=== PATIENT | female | born 1950 | race Caucasian/White ===

== ENCOUNTER → 2020-03-12 14:32 | Outpatient (BNVA) | payer MEDICARE, OTHER, SELFPAY | PROVIDERS: PCP Internal Medicine; Visit Provider Internal Medicine | DX: I48.20 Chronic atrial fibrillation, unspecified (principal); Z51.81 Encounter for therapeutic drug level monitoring; Z79.01 Long term (current) use of anticoagulants | CPT/HCPCS: 85610; 99211 ==

== ENCOUNTER → 2020-05-08 14:47 | Outpatient (BNVA) | payer MEDICARE, OTHER, SELFPAY | PROVIDERS: PCP Internal Medicine; Visit Provider Internal Medicine | DX: I48.20 Chronic atrial fibrillation, unspecified (principal); Z79.01 Long term (current) use of anticoagulants; Z51.81 Encounter for therapeutic drug level monitoring | CPT/HCPCS: 85610; 99211 ==

== ENCOUNTER → 2020-07-03 14:17 | Outpatient (BNVA) | payer MEDICARE, OTHER, SELFPAY | PROVIDERS: PCP Internal Medicine; Visit Provider Internal Medicine | DX: I48.20 Chronic atrial fibrillation, unspecified (principal); Z51.81 Encounter for therapeutic drug level monitoring; Z79.01 Long term (current) use of anticoagulants | CPT/HCPCS: 85610; 99211 ==

== ENCOUNTER → 2020-08-15 14:26 | Outpatient (BNVA) | payer MEDICARE, OTHER, SELFPAY | PROVIDERS: PCP Internal Medicine; Visit Provider Internal Medicine | DX: I48.20 Chronic atrial fibrillation, unspecified (principal); Z79.01 Long term (current) use of anticoagulants; Z51.81 Encounter for therapeutic drug level monitoring | CPT/HCPCS: G0248 ==

== ENCOUNTER → 2020-08-21 11:46 | Outpatient (BNVA) | payer MEDICARE, OTHER, SELFPAY | PROVIDERS: PCP Internal Medicine; Visit Provider Internal Medicine ==

== ENCOUNTER → 2020-08-28 11:55 | Outpatient (BNVA) | payer MEDICARE, OTHER, SELFPAY | PROVIDERS: PCP Internal Medicine; Visit Provider Internal Medicine ==

== ENCOUNTER → 2020-09-04 10:45 | Outpatient (BNVA) | payer MEDICARE, OTHER, SELFPAY | PROVIDERS: PCP Internal Medicine; Visit Provider Internal Medicine ==

== ENCOUNTER → 2020-09-18 09:55 | Outpatient (BNVA) | payer MEDICARE, OTHER, SELFPAY | PROVIDERS: PCP Internal Medicine; Visit Provider Internal Medicine ==

== ENCOUNTER → 2020-10-02 10:56 | Outpatient (BNVA) | payer MEDICARE, OTHER, SELFPAY | PROVIDERS: PCP Internal Medicine; Visit Provider Internal Medicine ==

== ENCOUNTER → 2020-10-16 10:48 | Outpatient (BNVA) | payer MEDICARE, OTHER, SELFPAY | PROVIDERS: PCP Internal Medicine; Visit Provider Internal Medicine ==

== ENCOUNTER → 2020-10-30 15:22 | Outpatient (BNVA) | payer MEDICARE, OTHER, SELFPAY | PROVIDERS: PCP Internal Medicine; Visit Provider Internal Medicine | DX: I48.20 Chronic atrial fibrillation, unspecified (principal) | CPT/HCPCS: Q3014 ==

== ENCOUNTER → 2020-11-13 11:52 | Outpatient (BNVA) | payer MEDICARE, OTHER, SELFPAY | PROVIDERS: PCP Internal Medicine; Visit Provider Internal Medicine ==

== ENCOUNTER → 2020-11-20 10:14 | Outpatient (BNVA) | payer MEDICARE, OTHER, SELFPAY | PROVIDERS: PCP Internal Medicine; Visit Provider Internal Medicine ==

== ENCOUNTER → 2020-12-04 11:04 | Outpatient (BNVA) | payer MEDICARE, OTHER, SELFPAY | PROVIDERS: PCP Internal Medicine; Visit Provider Internal Medicine ==

== ENCOUNTER → 2020-12-18 11:45 | Outpatient (BNVA) | payer MEDICARE, OTHER, SELFPAY | PROVIDERS: PCP Internal Medicine; Visit Provider Internal Medicine | DX: I48.11 Longstanding persistent atrial fibrillation (principal) | CPT/HCPCS: Q3014 ==

== ENCOUNTER → 2020-12-19 14:02 | Outpatient (BNVA) | payer MEDICARE, OTHER, SELFPAY | PROVIDERS: PCP Internal Medicine; Visit Provider Internal Medicine ==

== ENCOUNTER → 2021-01-02 13:34 | Outpatient (BNVA) | payer MEDICARE, OTHER, SELFPAY | PROVIDERS: PCP Internal Medicine; Visit Provider Internal Medicine ==

== ENCOUNTER → 2021-01-08 12:18 | Outpatient (BNVA) | payer MEDICARE, OTHER, SELFPAY | PROVIDERS: PCP Internal Medicine; Visit Provider Internal Medicine ==

== ENCOUNTER → 2021-01-22 11:47 | Outpatient (BNVA) | payer MEDICARE, OTHER, SELFPAY | PROVIDERS: PCP Internal Medicine; Visit Provider Internal Medicine ==

== ENCOUNTER → 2021-02-05 12:01 | Outpatient (BNVA) | payer MEDICARE, OTHER, SELFPAY | PROVIDERS: PCP Internal Medicine; Visit Provider Internal Medicine ==

== ENCOUNTER → 2021-02-19 11:05 | Outpatient (BNVA) | payer MEDICARE, OTHER, SELFPAY | PROVIDERS: PCP Internal Medicine; Visit Provider Internal Medicine ==

== ENCOUNTER → 2021-03-05 10:27 | Outpatient (BNVA) | payer MEDICARE, OTHER, SELFPAY | PROVIDERS: PCP Internal Medicine; Visit Provider Internal Medicine ==

== ENCOUNTER → 2021-03-19 11:23 | Outpatient (BNVA) | payer MEDICARE, OTHER, SELFPAY | PROVIDERS: PCP Internal Medicine; Visit Provider Internal Medicine ==

== ENCOUNTER → 2021-04-02 10:44 | Outpatient (BNVA) | payer MEDICARE, OTHER, SELFPAY | PROVIDERS: PCP Internal Medicine; Visit Provider Internal Medicine | DX: I48.20 Chronic atrial fibrillation, unspecified (principal); Z51.81 Encounter for therapeutic drug level monitoring; Z79.01 Long term (current) use of anticoagulants | CPT/HCPCS: Q3014 ==

== ENCOUNTER → 2021-04-16 11:48 | Outpatient (BNVA) | payer MEDICARE, OTHER, SELFPAY | PROVIDERS: PCP Internal Medicine; Visit Provider Internal Medicine ==

== ENCOUNTER → 2021-04-30 10:11 | Outpatient (BNVA) | payer MEDICARE, OTHER, SELFPAY | PROVIDERS: PCP Internal Medicine; Visit Provider Internal Medicine ==

== ENCOUNTER → 2021-05-14 11:45 | Outpatient (BNVA) | payer MEDICARE, OTHER, SELFPAY | PROVIDERS: PCP Internal Medicine; Visit Provider Internal Medicine | DX: I48.20 Chronic atrial fibrillation, unspecified (principal); Z51.81 Encounter for therapeutic drug level monitoring; Z79.01 Long term (current) use of anticoagulants | CPT/HCPCS: Q3014 ==

== ENCOUNTER → 2021-05-28 10:37 | Outpatient (BNVA) | payer MEDICARE, OTHER, SELFPAY | PROVIDERS: PCP Internal Medicine; Visit Provider Internal Medicine | DX: I48.20 Chronic atrial fibrillation, unspecified (principal); Z51.81 Encounter for therapeutic drug level monitoring; Z79.01 Long term (current) use of anticoagulants | CPT/HCPCS: Q3014 ==

== ENCOUNTER → 2021-06-04 16:11 | Outpatient (BNVA) | payer MEDICARE, OTHER, SELFPAY | PROVIDERS: PCP Internal Medicine; Visit Provider Internal Medicine | DX: I48.20 Chronic atrial fibrillation, unspecified (principal); Z51.81 Encounter for therapeutic drug level monitoring; Z79.01 Long term (current) use of anticoagulants | CPT/HCPCS: 99211 ==

== ENCOUNTER → 2021-06-12 15:39 | Outpatient (BNVA) | payer MEDICARE, OTHER, SELFPAY | PROVIDERS: PCP Internal Medicine; Visit Provider Internal Medicine | DX: I48.20 Chronic atrial fibrillation, unspecified (principal); Z51.81 Encounter for therapeutic drug level monitoring; Z79.01 Long term (current) use of anticoagulants | CPT/HCPCS: Q3014 ==

== ENCOUNTER → 2021-06-25 11:37 | Outpatient (BNVA) | payer MEDICARE, OTHER, SELFPAY | PROVIDERS: PCP Internal Medicine; Visit Provider Internal Medicine | DX: Z13.89 Encounter for screening for other disorder (principal) ==

== ENCOUNTER → 2021-07-09 11:23 | Outpatient (BNVA) | payer MEDICARE, OTHER, SELFPAY | PROVIDERS: PCP Internal Medicine; Visit Provider Internal Medicine | DX: Z13.89 Encounter for screening for other disorder (principal) ==

== ENCOUNTER → 2021-07-16 11:50 | Outpatient (BNVA) | payer MEDICARE, OTHER, SELFPAY | PROVIDERS: PCP Internal Medicine; Visit Provider Internal Medicine | DX: I48.20 Chronic atrial fibrillation, unspecified (principal); Z51.81 Encounter for therapeutic drug level monitoring; Z79.01 Long term (current) use of anticoagulants | CPT/HCPCS: Q3014 ==

== ENCOUNTER → 2021-07-23 14:57 | Outpatient (BNVA) | payer MEDICARE, OTHER, SELFPAY | PROVIDERS: PCP Internal Medicine; Visit Provider Internal Medicine | DX: I48.20 Chronic atrial fibrillation, unspecified (principal); Z51.81 Encounter for therapeutic drug level monitoring; Z79.01 Long term (current) use of anticoagulants | CPT/HCPCS: Q3014 ==

== ENCOUNTER → 2021-07-30 15:14 | Outpatient (BNVA) | payer MEDICARE, OTHER, SELFPAY | PROVIDERS: PCP Internal Medicine; Visit Provider Internal Medicine | DX: I48.20 Chronic atrial fibrillation, unspecified (principal); Z51.81 Encounter for therapeutic drug level monitoring; Z79.01 Long term (current) use of anticoagulants | CPT/HCPCS: Q3014 ==

== ENCOUNTER → 2021-08-06 13:53 | Outpatient (BNVA) | payer MEDICARE, OTHER, SELFPAY | PROVIDERS: PCP Internal Medicine; Visit Provider Internal Medicine | DX: Z13.89 Encounter for screening for other disorder (principal) ==

== ENCOUNTER → 2021-08-13 14:37 | Outpatient (BNVA) | payer MEDICARE, OTHER, SELFPAY | PROVIDERS: PCP Internal Medicine; Visit Provider Internal Medicine | DX: Z13.89 Encounter for screening for other disorder (principal) ==

== ENCOUNTER → 2021-08-27 13:31 | Outpatient (BNVA) | payer MEDICARE, OTHER, SELFPAY | PROVIDERS: PCP Internal Medicine; Visit Provider Internal Medicine | DX: Z13.89 Encounter for screening for other disorder (principal) ==

== ENCOUNTER → 2021-09-10 14:33 | Outpatient (BNVA) | payer MEDICARE, OTHER, SELFPAY | PROVIDERS: PCP Internal Medicine; Visit Provider Internal Medicine | DX: I48.20 Chronic atrial fibrillation, unspecified (principal); Z79.01 Long term (current) use of anticoagulants; Z51.81 Encounter for therapeutic drug level monitoring | CPT/HCPCS: 85610; 99211 ==

== ENCOUNTER → 2021-09-24 13:07 | Outpatient (BNVA) | payer MEDICARE, OTHER, SELFPAY | PROVIDERS: PCP Internal Medicine; Visit Provider Internal Medicine | DX: Z79.01 Long term (current) use of anticoagulants (principal) ==

== ENCOUNTER 2021-09-25 10:38 | Outpatient (REF) | payer MEDICARE, OTHER, SELFPAY ==
[2021-09-25 14:03] LABS: INTERNATIONAL NORM RATIO 2.3 (0.9-1.1); Prothrombin Time 26.2 SEC (9.9-13.0)
== END 2021-09-25 10:39 | disposition home or self-care (01) ==
LOC: HO.HMGCLDS 10:38
PROVIDERS: PCP Internal Medicine; Visit Provider Nurse Practitioner Family
DX: Z01.818 Encounter for other preprocedural examination (principal); I48.91 Unspecified atrial fibrillation
CPT/HCPCS: 36415; 85610

== ENCOUNTER → 2021-09-26 13:18 | Outpatient (REF) | payer MEDICARE, OTHER, SELFPAY ==
--- NOTE | 2021-09-26 13:25 | ECG_ITS ---
Test Reason : preop Blood Pressure : / mmHG Vent. Rate : 079 BPM Atrial Rate : 079 BPM P-R Int : 162 ms QRS Dur : 080 ms QT Int : 410 ms P-R-T Axes : 072 042 070 degrees QTc Int : 470 ms Normal sinus rhythm with sinus arrhythmia Septal infarct , age undetermined Abnormal ECG No previous ECGs available Referred By: Pari Mas Electronically Signed By:ETHAN BRYANT MD
== END ==
LOC: HO.CARD 13:18
PROVIDERS: PCP Internal Medicine; Visit Provider Nurse Practitioner Family
DX: Z01.818 Encounter for other preprocedural examination (principal); I48.91 Unspecified atrial fibrillation
CPT/HCPCS: 93005

== ENCOUNTER → 2021-10-23 08:57 | Outpatient (BNVA) | payer MEDICARE, OTHER, SELFPAY | PROVIDERS: PCP Internal Medicine; Visit Provider Internal Medicine | DX: I48.20 Chronic atrial fibrillation, unspecified (principal); Z79.01 Long term (current) use of anticoagulants; Z51.81 Encounter for therapeutic drug level monitoring | CPT/HCPCS: Q3014 ==

== ENCOUNTER → 2022-04-22 11:48 | Outpatient (BNVA) | payer MEDICARE, OTHER, SELFPAY | PROVIDERS: PCP Internal Medicine; Visit Provider Internal Medicine | DX: Z79.01 Long term (current) use of anticoagulants (principal) ==

== ENCOUNTER → 2022-05-06 13:39 | Outpatient (BNVA) | payer MEDICARE, OTHER, SELFPAY | PROVIDERS: PCP Internal Medicine; Visit Provider Internal Medicine | DX: Z79.01 Long term (current) use of anticoagulants (principal) ==

== ENCOUNTER → 2022-05-20 13:40 | Outpatient (BNVA) | payer MEDICARE, OTHER, SELFPAY | PROVIDERS: PCP Internal Medicine; Visit Provider Internal Medicine | DX: Z79.01 Long term (current) use of anticoagulants (principal) ==

== ENCOUNTER → 2022-05-27 12:28 | Outpatient (BNVA) | payer MEDICARE, OTHER, SELFPAY | PROVIDERS: PCP Internal Medicine; Visit Provider Internal Medicine | DX: Z79.01 Long term (current) use of anticoagulants (principal) ==

== ENCOUNTER → 2022-06-10 11:13 | Outpatient (BNVA) | payer MEDICARE, OTHER, SELFPAY | PROVIDERS: PCP Internal Medicine; Visit Provider Internal Medicine | DX: Z79.01 Long term (current) use of anticoagulants (principal) ==

== ENCOUNTER → 2022-06-24 11:59 | Outpatient (BNVA) | payer MEDICARE, OTHER, SELFPAY | PROVIDERS: PCP Internal Medicine; Visit Provider Internal Medicine | DX: Z79.01 Long term (current) use of anticoagulants (principal) ==

== ENCOUNTER → 2022-07-08 10:00 | Outpatient (BNVA) | payer MEDICARE, OTHER, SELFPAY | PROVIDERS: PCP Internal Medicine; Visit Provider Internal Medicine | DX: Z79.01 Long term (current) use of anticoagulants (principal) ==

== ENCOUNTER → 2022-07-22 11:06 | Outpatient (BNVA) | payer MEDICARE, OTHER, SELFPAY | PROVIDERS: PCP Internal Medicine; Visit Provider Internal Medicine | DX: Z79.01 Long term (current) use of anticoagulants (principal) ==

== ENCOUNTER → 2022-07-29 10:15 | Outpatient (BNVA) | payer MEDICARE, OTHER, SELFPAY | PROVIDERS: PCP Internal Medicine; Visit Provider Internal Medicine ==

== ENCOUNTER → 2022-08-12 12:00 | Outpatient (BNVA) | payer MEDICARE, OTHER, SELFPAY | PROVIDERS: PCP Internal Medicine; Visit Provider Internal Medicine ==

== ENCOUNTER → 2022-08-26 11:01 | Outpatient (BNVA) | payer MEDICARE, OTHER, SELFPAY | PROVIDERS: PCP Internal Medicine; Visit Provider Internal Medicine ==

== ENCOUNTER → 2022-09-09 12:05 | Outpatient (BNVA) | payer MEDICARE, OTHER, SELFPAY | PROVIDERS: PCP Internal Medicine; Visit Provider Internal Medicine ==

== ENCOUNTER → 2022-09-23 14:05 | Outpatient (BNVA) | payer MEDICARE, OTHER, SELFPAY | PROVIDERS: PCP Internal Medicine; Visit Provider Internal Medicine ==

== ENCOUNTER → 2022-10-07 13:55 | Outpatient (BNVA) | payer MEDICARE, OTHER, SELFPAY | PROVIDERS: PCP Internal Medicine; Visit Provider Internal Medicine | DX: I48.20 Chronic atrial fibrillation, unspecified (principal); Z79.01 Long term (current) use of anticoagulants; Z51.81 Encounter for therapeutic drug level monitoring | CPT/HCPCS: 85610; 99212 ==

== ENCOUNTER → 2022-10-21 10:34 | Outpatient (BNVA) | payer MEDICARE, OTHER, SELFPAY | PROVIDERS: PCP Internal Medicine; Visit Provider Internal Medicine ==

== ENCOUNTER → 2022-11-04 11:16 | Outpatient (BNVA) | payer MEDICARE, OTHER, SELFPAY | PROVIDERS: PCP Internal Medicine; Visit Provider Internal Medicine ==

== ENCOUNTER → 2022-11-18 09:10 | Outpatient (BNVA) | payer MEDICARE, OTHER, SELFPAY | PROVIDERS: PCP Internal Medicine; Visit Provider Internal Medicine ==

== ENCOUNTER → 2022-12-02 10:13 | Outpatient (BNVA) | payer MEDICARE, OTHER, SELFPAY | PROVIDERS: PCP Internal Medicine; Visit Provider Internal Medicine ==

== ENCOUNTER 2022-12-05 14:05 | Outpatient (AMB) | payer MEDICARE, OTHER, SELFPAY ==
--- NOTE | 2022-12-05 14:05 | MHC.PC.OV ---
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 Allergies metoprolol Allergy (Unknown, Verified 12/05/22 14:08) RESP STRESS Sulfa (Sulfonamide Antibiotics) [SULFA (SULFONAMIDE ANTIBIOTICS)] Allergy (Unknown, Verified 12/05/22 14:08) RASH Medication List - Last Reconciled 12/05/22 by Jan Maria MD xyyajitljre-O3-Nwqyfzibv serr 1,500-400-100 mg-unit-mg (Glucosamine Daily Complex) 1 tab PO DAILY [IRON 1 TAB DAILY ] [LORATIDINE 1 TAB DAILY PRN ALLERGIES ] hygvxkyu-vjm-BS-lycopen-lutein 0.4 mg-300 mcg- 250 mcg (Centrum Silver) 1 tab PO DAILY [TUMS PO PRN] [VITAMIN D 3 1 TAB DAILY PO ] warfarin See Protocol ; 5 mg 2 days a week and 7.5 mg for the rest of the week or as directed 90 days Tobacco use date assessed: 12/05/22 Fall risk assessment: No Falls in past year Last assessed Fall Risk: 12/05/22 Dental Screening Dental Screen Date: 12/05/22 Did you have a dental visit in the last 12 months?: No Did you have a dental problem in the last 6 months where you did not have access to dental care?: No HPI medication follow up [phone] HPI Details 72-year-old obese female with a history of aortic valve replacement in 2013 bioprosthetic, atrial fibrillation patient is on anticoagulant, GERD. Patient also has an ascending aorta dilatation at 4.2 cm November 2018. Patient is here for follow-up through Telehealth. DR. Mayen. have not seen cardiology. BP good at home PFSH Medical History (Updated 12/05/22 @ 14:18 by Jan Maria MD) Atrial fibrillation Cholelithiasis GERD (gastroesophageal reflux disease) Incisional hernia Obesity (BMI 30-39.9) Osteoporosis Renal calculi Urge incontinence Surgical History (Updated 12/05/22 @ 14:24 by Jan Maria MD) Aortic valve replaced History of cataract surgery Hx of appendectomy Hx of tonsillectomy S/P MARLENY-BSO Social History (Updated 09/20/21 @ 08:40 by Eber Romero Abiodun) Housing: House Alcohol intake: never Patient Tobacco Use Status: Former Tobacco user e-Cigarette/Vaping Use: Never Used Second Hand Smoke Exposure: No service: No Current occupational status: retired Cognitive needs: No Hearing needs: No Vision needs: Yes (glasses) Questionnaire PHQ-9 Over the last 2 weeks, how often have you been bothered by any of the following problems? 1. Little interest or pleasure in doing things: not at all 2. Feeling down, depressed, or hopeless: not at all 3. Trouble falling or staying asleep, or sleeping too much: not at all 4. Feeling tired or having little energy: not at all 5. Poor appetite or overeating: not at all 6. Feeling bad about yourself - or that you are a failure or have let yourself or your family down: not at all 7. Trouble concentrating on things, such as reading the newspaper or watching television: not at all 8. Moving or speaking so slowly that other people could have noticed. Or the opposite - being so fidgety or restless that you have been moving around a lot more than usual: not at all 9. Thoughts that you would be better off or of hurting yourself in some way: not at all Total score: 0 Depression Screening Interpretation: Negative Source: Developed by Drs. Iftikhar Wheeler, Akosua Contreras, Scooter Leon and colleagues, with an educational brooke from [employer]. Thrive Questionnaire Date Thrive assessed: 12/05/22 AUDIT C Alcohol Use Questionnaire (AUDIT-C) 1. How often do you have a drink containing alcohol?: Never Total Score: 0 GANESH-7 AMB Questionnaire GANESH-7 Date GANESH - 7 assessed: 12/05/22 Feeling nervous, anxious, or on edge: 0 = Not at all Not being able to stop or control worryin = Not at all Worrying too much about different things: 0 = Not at all Trouble relaxin = Not at all Being so restless that it is hard to sit still: 0 = Not at all Becoming easily annoyed or irritable: 0 = Not at all Feeling afraid as if something awful might happen: 0 = Not at all Total GANESH-7 score (0-4 normal; 5-9 mild; 10-14 moderate; 15-21 severe): 0 Source: Developed by Drs. Iftikhar Wheeler, Akosua Contreras, Scooter Leon and colleagues, with an educational brooke from [employer]. Physical exam (Primary Care) Tobacco/Smoking Status: Tobacco use Status Tobacco use date assessed 12/05/22 12/05/22 14:09 Patient Tobacco Use Status Former Tobacco user 12/05/22 14:09 e-Cigarette/Vaping Use Never Used 12/05/22 14:09 PHQ-9: PHQ-9 Score PHQ-9: Total score 0 12/05/22 14:09 Depression Screening Interpretation: Negative Thrive Assessment: Date of Thrive Assessment Date Thrive assessed 12/05/22 12/05/22 14:09 Telehealth Telehealth Location of provider rendering services: practice address Location of patient: address on file Patient Identification confirmed using: Name, : Yes Telehealth method: voice only (landline) Patient verbally consented to treatment: Yes Patient verbally consented to billing insurance company: Yes Patient informed of any privacy concerns related to visit: Yes Minutes spent on Phone/Video with Pt.: 25 Assessment and Plan Assessment & Plan (1) Ascending aorta dilatation: Comment: 2019 4.2 cm Code(s): I77.810 - Thoracic aortic ectasia Plan: Control the blood pressure continue to monitor (2) Atrial fibrillation: Code(s): I48.91 - Unspecified atrial fibrillation Plan: Continue with anticoagulation, will need examination next time. Blood work requested (3) Obesity (BMI 30-39.9): Code(s): E66.9 - Obesity, unspecified Plan: Diet and exercise (4) GERD (gastroesophageal reflux disease): Code(s): K21.9 - Gastro-esophageal reflux disease without esophagitis Plan: Avoid the foods that causes that usually spicy foods, tomato products, juices, coffee, soda and foods that your sensitive to. After eating do not lie down, allow 3-4 hours before in lie down. And keep the head of bed above 30 degrees to avoid the acid from going up. (5) Aortic valve replaced: Comment: Aortic stenosis December 22/2014 Dr. zamorano November 2018 echocardiogram normal LV impaired relaxation bioprosthetic valve normal, ascending aorta 4.2 cm Code(s): Z95.2 - Presence of prosthetic heart valve Plan: Continue to be monitored by Cardiology Orders: Orders Vitamin B12 and Folate Today Z95.2 - Presence of prosthetic heart valve B Type Natriuretic Peptide Today Z95.2 - Presence of prosthetic heart valve Comprehensive Met. Panel Today Z95.2 - Presence of prosthetic heart valve Lipid Panel Today E78.00 - Pure hypercholesterolemia, unspecified, Z95.2 - Presence of prosthetic heart valve Free T4 (Free Thyroxine) Today Z95.2 - Presence of prosthetic heart valve Thyroid Stimulating Hormone Today Z95.2 - Presence of prosthetic heart valve Vitamin D 25-OH Total Today Z95.2 - Presence of prosthetic heart valve Complete Blood Count Auto Diff Today Z95.2 - Presence of prosthetic heart valve CA echo transthoracic complete Today I77.810 - Thoracic aortic ectasia Medications: Changed From warfarin 10 mg See Protocol PO DAILY 180 tabs 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
== END 2022-12-05 14:30 | disposition home or self-care (01) ==
LOC: HO.HMGH 14:05
PROVIDERS: PCP Internal Medicine; Visit Provider Internal Medicine
DX: I48.91 Unspecified atrial fibrillation (principal); I77.810 Thoracic aortic ectasia; E66.9 Obesity, unspecified; K21.9 Gastro-esophageal reflux disease without esophagitis; Z95.2 Presence of prosthetic heart valve
CPT/HCPCS: 99443

== ENCOUNTER → 2022-12-16 13:28 | Outpatient (BNVA) | payer MEDICARE, OTHER, SELFPAY | PROVIDERS: PCP Internal Medicine; Visit Provider Internal Medicine ==

== ENCOUNTER → 2022-12-30 09:03 | Outpatient (BNVA) | payer MEDICARE, OTHER, SELFPAY | PROVIDERS: PCP Internal Medicine; Visit Provider Internal Medicine ==

== ENCOUNTER → 2023-01-06 08:40 | Outpatient (BNVA) | payer MEDICARE, OTHER, SELFPAY | PROVIDERS: PCP Internal Medicine; Visit Provider Internal Medicine ==

== ENCOUNTER → 2023-01-20 10:28 | Outpatient (BNVA) | payer MEDICARE, OTHER, SELFPAY | PROVIDERS: PCP Internal Medicine; Visit Provider Internal Medicine ==

== ENCOUNTER → 2023-02-03 12:12 | Outpatient (BNVA) | payer MEDICARE, OTHER, SELFPAY | PROVIDERS: PCP Internal Medicine; Visit Provider Internal Medicine ==

== ENCOUNTER → 2023-03-03 10:20 | Outpatient (BNVA) | payer MEDICARE, OTHER, SELFPAY | PROVIDERS: PCP Internal Medicine; Visit Provider Internal Medicine ==

== ENCOUNTER → 2023-03-17 10:11 | Outpatient (BNVA) | payer MEDICARE, OTHER, SELFPAY | PROVIDERS: PCP Internal Medicine; Visit Provider Internal Medicine ==

== ENCOUNTER → 2023-03-24 09:15 | Outpatient (BNVA) | payer MEDICARE, OTHER, SELFPAY | PROVIDERS: PCP Internal Medicine; Visit Provider Internal Medicine ==

== ENCOUNTER → 2023-04-07 10:15 | Outpatient (BNVA) | payer MEDICARE, OTHER, SELFPAY | PROVIDERS: PCP Internal Medicine; Visit Provider Internal Medicine ==

== ENCOUNTER → 2023-04-21 10:25 | Outpatient (BNVA) | payer MEDICARE, OTHER, SELFPAY | PROVIDERS: PCP Internal Medicine; Visit Provider Internal Medicine ==

== ENCOUNTER → 2023-05-05 10:59 | Outpatient (BNVA) | payer MEDICARE, OTHER, SELFPAY | PROVIDERS: PCP Internal Medicine; Visit Provider Internal Medicine ==

== ENCOUNTER → 2023-05-19 15:09 | Outpatient (BNVA) | payer MEDICARE, OTHER, SELFPAY | PROVIDERS: PCP Internal Medicine; Visit Provider Internal Medicine ==

== ENCOUNTER → 2023-05-26 10:36 | Outpatient (BNVA) | payer MEDICARE, OTHER, SELFPAY | PROVIDERS: PCP Internal Medicine; Visit Provider Internal Medicine ==

== ENCOUNTER → 2023-06-09 10:42 | Outpatient (BNVA) | payer MEDICARE, OTHER, SELFPAY | PROVIDERS: PCP Internal Medicine; Visit Provider Internal Medicine ==

== ENCOUNTER 2023-06-23 09:17 | Outpatient (AMB) | payer MEDICARE, OTHER, SELFPAY ==
--- NOTE | 2023-06-23 09:21 | MHC.OFFVISCO ---
Intake Intake Visit Reasons: Anticoagulation Allergies metoprolol Allergy (Unknown, Verified 06/09/23 10:44) RESP STRESS Sulfa (Sulfonamide Antibiotics) [SULFA (SULFONAMIDE ANTIBIOTICS)] Allergy (Unknown, Verified 06/09/23 10:44) RASH Nursing Note INR received from [facility] INR is: 1.9 INR out of range, patient indicated no changes in assessment questionnaire Telephone call to patient for further assessment Didn't have her usual peanut butter the past few days Medication or supplement: no chages Diet: States will have her usual peanut butter today Dose: no changes Signs and symptoms of bleeding and bruising discussed Patient will go to ER with any signs and symptoms of bleeding, or clotting or unusual bruising? Retest: 2 weeks Patient verbalizes understanding of instructions given and retest date with read back Anti-Coag Initial Assessment Social Hx Patient Tobacco Use Status: Former Tobacco user alcohol intake: never Questionnaires HAS-BLED Does the patient had uncontrolled Hypertension?: No Does the patient have renal disease?: No Does the patient have liver disease?: No Does the patient have a history of stroke?: No Has the patient had major bleeding or predisposition to bleeding?: No Does the patient have labile INRs?: No Is the patient over 65 years of age?: Yes Is the patient on medications that gives them a predisposition to bleeding?: Yes Does the patient use alcohol?: No HAS-BLED Score: 2 CHADSVASC Age: 75 or over Gender: Female Does the patient have a history of CHF?: No Does the patient have a history of Hypertension?: No Does the patient have a history of Stroke/TIA/Thromboembolism?: No Does the patient have a history of Vascular Disease (prior AL, PAD or aortic plaque)?: Yes Does the patient have a history of Diabetes?: No CHADS VACS Score: 4 Alex Prediction Score Rsk VTE Active Cancer: No Previous VTE, excluding superficial vein thrombosis: No Reduced mobility: No Already known Thrombophilic Condition: No With-in last month Trauma and/or Surgery: No Elderly 70 year or older: Yes Heart and/or Respiratory Failure: No Acute Myocardial infarction and/or Ischemic Stroke: No Acute Infection and/or Rheumatologic Disorder: No Obesity (BMI 30 or greater): Yes Ongoing Hormonal Treatment: No Score: 2 Alex Score less than 4; Low Risk of VTE Alex Score 4 or greater; High Risk of VTE Coding Level of Care Code Est Patient Level 1 Diagnoses Current use of anticoagulant therapy Z79.01 Results AMB INR Fingerstick AMB INR Fingerstick 1.9 Last Edit by Armida Fernández RN on 06/23/23 09:33 ACELIS Assessment & Plan Assessment & Plan (1) Current use of anticoagulant therapy: Code(s): 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
== END 2023-06-23 09:45 | disposition home or self-care (01) ==
LOC: HO.ACS 09:17
PROVIDERS: PCP Internal Medicine; Visit Provider Internal Medicine
DX: Z79.01 Long term (current) use of anticoagulants (principal)

== ENCOUNTER → 2023-06-23 09:17 | Outpatient (BNVA) | payer MEDICARE, OTHER, SELFPAY | PROVIDERS: PCP Internal Medicine; Visit Provider Internal Medicine | DX: I48.20 Chronic atrial fibrillation, unspecified (principal); Z79.01 Long term (current) use of anticoagulants; Z51.81 Encounter for therapeutic drug level monitoring | CPT/HCPCS: 99211 ==

== ENCOUNTER 2023-07-07 10:52 | Outpatient (AMB) | payer MEDICARE, OTHER, SELFPAY ==
--- NOTE | 2023-07-07 11:54 | MHC.OFFVISCO ---
Intake Intake Visit Reasons: Anticoagulation Allergies metoprolol Allergy (Unknown, Verified 06/09/23 10:44) RESP STRESS Sulfa (Sulfonamide Antibiotics) [SULFA (SULFONAMIDE ANTIBIOTICS)] Allergy (Unknown, Verified 06/09/23 10:44) RASH Nursing Note INR received from [facility] INR is: 3.7 INR out of range; patient indicated no changes in assessment questionnaire Telephone call to patient for further assessment Pt states she has been off her regular diet and had taken tylenol 3 days in a row with one day of 2 doses and one dose the other days Medication or supplement: no changes Diet: pt not careful with her diet Dose: decrease today's dose to 5mg(7.5mg) then resume usual dose of 5mg X2 days (Wed/Thu) and 7.5mg X 5days Signs and symptoms of bleeding and bruising discussed Patient will go to ER with any signs and symptoms of bleeding, or clotting or unusual bruising? 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
== END 2023-07-07 12:09 | disposition home or self-care (01) ==
LOC: HO.ACS 10:52
PROVIDERS: PCP Internal Medicine; Visit Provider Internal Medicine
DX: Z79.01 Long term (current) use of anticoagulants (principal)

== ENCOUNTER → 2023-07-07 10:52 | Outpatient (BNVA) | payer MEDICARE, OTHER, SELFPAY | PROVIDERS: PCP Internal Medicine; Visit Provider Internal Medicine | DX: I48.20 Chronic atrial fibrillation, unspecified (principal); Z79.01 Long term (current) use of anticoagulants; Z51.81 Encounter for therapeutic drug level monitoring | CPT/HCPCS: 99211 ==

== ENCOUNTER → 2023-07-14 10:26 | Outpatient (BNVA) | payer MEDICARE, OTHER, SELFPAY | PROVIDERS: PCP Internal Medicine; Visit Provider Internal Medicine ==

== ENCOUNTER → 2023-07-28 10:29 | Outpatient (BNVA) | payer MEDICARE, OTHER, SELFPAY | PROVIDERS: PCP Internal Medicine; Visit Provider Internal Medicine ==

== ENCOUNTER → 2023-08-11 12:02 | Outpatient (BNVA) | payer MEDICARE, OTHER, SELFPAY | PROVIDERS: PCP Internal Medicine; Visit Provider Internal Medicine ==

== ENCOUNTER → 2023-08-25 13:29 | Outpatient (BNVA) | payer MEDICARE, OTHER, SELFPAY | PROVIDERS: PCP Internal Medicine; Visit Provider Internal Medicine ==

== ENCOUNTER → 2023-09-08 10:52 | Outpatient (BNVA) | payer MEDICARE, OTHER, SELFPAY | PROVIDERS: PCP Internal Medicine; Visit Provider Internal Medicine ==

== ENCOUNTER → 2023-09-22 09:51 | Outpatient (BNVA) | payer MEDICARE, OTHER, SELFPAY | PROVIDERS: PCP Internal Medicine; Visit Provider Internal Medicine ==

== ENCOUNTER → 2023-10-06 09:43 | Outpatient (BNVA) | payer MEDICARE, OTHER, SELFPAY | PROVIDERS: PCP Internal Medicine; Visit Provider Internal Medicine ==

== ENCOUNTER → 2023-10-20 14:30 | Outpatient (BNVA) | payer MEDICARE, OTHER, SELFPAY | PROVIDERS: PCP Internal Medicine; Visit Provider Internal Medicine ==

== ENCOUNTER → 2023-11-03 12:09 | Outpatient (BNVA) | payer MEDICARE, OTHER, SELFPAY | PROVIDERS: PCP Internal Medicine; Visit Provider Internal Medicine ==

== ENCOUNTER → 2023-11-17 08:32 | Outpatient (BNVA) | payer MEDICARE, OTHER, SELFPAY | PROVIDERS: PCP Internal Medicine; Visit Provider Internal Medicine ==

== ENCOUNTER → 2023-11-18 10:25 | Outpatient (BNVA) | payer MEDICARE, OTHER, SELFPAY | PROVIDERS: PCP Internal Medicine; Visit Provider Internal Medicine ==

== ENCOUNTER → 2023-11-24 10:45 | Outpatient (BNVA) | payer MEDICARE, OTHER, SELFPAY | PROVIDERS: PCP Internal Medicine; Visit Provider Internal Medicine ==

== ENCOUNTER 2023-12-08 14:11 | Outpatient (REF) | payer MEDICARE, OTHER, SELFPAY ==
[2023-12-08 15:00] LABS: Prothrombin Time 64.8 SEC (11.1-13.3)
[2023-12-08 15:07] LABS: INTERNATIONAL NORM RATIO 5.3 (0.9-1.1)
== END 2023-12-08 14:12 | disposition home or self-care (01) ==
LOC: HO.LAB 14:11
PROVIDERS: PCP Internal Medicine; Visit Provider Internal Medicine
DX: Z51.81 Encounter for therapeutic drug level monitoring (principal); Z79.01 Long term (current) use of anticoagulants
CPT/HCPCS: 36415; 85610; 99212

== ENCOUNTER 2023-12-08 14:11 | Outpatient (AMB) | payer MEDICARE, OTHER, SELFPAY ==
[2023-12-08 14:31] LABS: Prothrombin Time Whole Bld POC 69.7 sec (11.1-13.5); ~PT, ~INR - Anti Coag Clinic 5.8 (0.9-1.1)
--- NOTE | 2023-12-08 14:45 | MHC.OFFVISCO ---
Intake Intake Visit Reasons: Anticoagulation Allergies metoprolol Allergy (Unknown, Verified 12/08/23 14:19) RESP STRESS Sulfa (Sulfonamide Antibiotics) [SULFA (SULFONAMIDE ANTIBIOTICS)] Allergy (Unknown, Verified 12/08/23 14:19) RASH Medication List - Last Reconciled 12/08/23 by Armida Fernández RN [id number] serr 1,500-400-100 mg-unit-mg (Glucosamine Daily Complex) 1 tab PO DAILY [IRON 1 TAB DAILY ] [LORATIDINE 1 TAB DAILY PRN ALLERGIES ] sdiilycj-hoa-JT-lycopen-lutein 0.4 mg-300 mcg- 250 mcg (Centrum Silver) 1 tab PO DAILY [TUMS PO PRN] [VITAMIN D 3 1 TAB DAILY PO ] warfarin See Protocol ; 5 mg 2 days a week and 7.5 mg for the rest of the week or as directed 90 days Nursing Note Pt to [facility] accompanied by friend for meter to meter check. Pt demonstrated good technique with home meter. Last 5 INR's in pt's POC machine verified with [facility] documentation. Pt INR: 6.7, [facility] INR: 5.7 INR out of range of 2-3 Pt states she has been very stressed thinking about going out of the house to come to this appointment. Stress can increase the INR. Also, during med review, pt states she has not taken her multivitamin in 1 week. This can also increase the INR as the MVI contains Vit K. Pt states she ran out of med but ordered more and received it today. Pt sent to lab for verification of INR. Lab draw result: 5.3 Received from [facility] Diet: Usual diet for pt but states she has not had as much greens recently. Dose: Hold today's dose of 7.5mg then to retest at home tomorrow. Signs and symptoms of bleeding and bruising discussed Patient will go to ER with any signs and symptoms of bleeding, or clotting or unusual bruising? Retest: 12/09/23 Patient verbalizes understanding of instructions given and retest date with read back T/C to Dr Maria's office to report critical value of 5.3. Spoke to Tisha MARTINEZ and results given to her along with dosing plan and next re-test day. Composed note also written to Dr Maria. 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
== END 2023-12-08 16:12 | disposition home or self-care (01) ==
LOC: HO.ACS 14:11
PROVIDERS: PCP Internal Medicine; Visit Provider Internal Medicine
DX: Z79.01 Long term (current) use of anticoagulants (principal)

== ENCOUNTER → 2023-12-09 10:38 | Outpatient (BNVA) | payer MEDICARE, OTHER, SELFPAY | PROVIDERS: PCP Internal Medicine; Visit Provider Internal Medicine ==

== ENCOUNTER → 2023-12-15 12:14 | Outpatient (BNVA) | payer MEDICARE, OTHER, SELFPAY | PROVIDERS: PCP Internal Medicine; Visit Provider Internal Medicine ==

== ENCOUNTER → 2023-12-22 09:10 | Outpatient (BNVA) | payer MEDICARE, OTHER, SELFPAY | PROVIDERS: PCP Internal Medicine; Visit Provider Internal Medicine ==

== ENCOUNTER → 2024-01-05 09:56 | Outpatient (BNVA) | payer MEDICARE, OTHER, SELFPAY | PROVIDERS: PCP Internal Medicine; Visit Provider Internal Medicine ==

== ENCOUNTER → 2024-01-19 11:16 | Outpatient (BNVA) | payer MEDICARE, OTHER, SELFPAY | PROVIDERS: PCP Internal Medicine; Visit Provider Internal Medicine ==

== ENCOUNTER → 2024-02-02 09:32 | Outpatient (BNVA) | payer MEDICARE, OTHER, SELFPAY | PROVIDERS: PCP Internal Medicine; Visit Provider Internal Medicine ==

== ENCOUNTER → 2024-02-16 09:03 | Outpatient (BNVA) | payer MEDICARE, OTHER, SELFPAY | PROVIDERS: PCP Internal Medicine; Visit Provider Internal Medicine ==

== ENCOUNTER 2024-03-21 15:25 | Outpatient (AMB) | payer MEDICARE, OTHER, SELFPAY ==
--- NOTE | 2024-03-21 16:03 | A.OFFPC_ITS ---
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 Automat Required: No Accompanied by: Self / Same As Patient Allergies metoprolol Allergy (Unknown, Verified 03/21/24 16:05) RESP STRESS Sulfa (Sulfonamide Antibiotics) [SULFA (SULFONAMIDE ANTIBIOTICS)] Allergy (Unknown, Verified 03/21/24 16:05) RASH Medication List - Last Reconciled 03/21/24 by Jan Maria MD kaffdldnmgx-E1-Dyigfaqje serr 1,500-400-100 mg-unit-mg (Glucosamine Daily Complex) 1 tab PO DAILY [IRON 1 TAB DAILY ] [LORATIDINE 1 TAB DAILY PRN ALLERGIES ] qpfyymwj-boi-DC-lycopen-lutein 0.4 mg-300 mcg- 250 mcg (Centrum Silver) 1 tab PO DAILY [TUMS PO PRN] [VITAMIN D 3 1 TAB DAILY PO ] warfarin See Protocol ; 5 mg 2 days a week and 7.5 mg for the rest of the week or as directed 90 days Tobacco use date assessed: 03/21/24 Fall risk assessment: No Falls in past year Last assessed Fall Risk: 03/21/24 Dental Screening Dental Screen Date: 03/21/24 Did you have a dental visit in the last 12 months?: No Did you have a dental problem in the last 6 months where you did not have access to dental care?: No Was dental information given to patient?: No HPI FollowUp HPI Details 74-year-old obese female with a history of aortic valve replacement atrial fibrillation ascending aorta dilatation last seen in 12/14/2022. noted weight loss, states has bad habits - sleeps late-. noted o2 sat 90 goes down 89 on walking o2 sat goes down to 86 and going to sit down oxygen back to 90 [facility] Medical History (Updated 03/21/24 @ 16:28 by Jan Maria MD) Incisional hernia Renal calculi Osteoporosis Urge incontinence Atrial fibrillation Obesity (BMI 30-39.9) Cholelithiasis GERD (gastroesophageal reflux disease) Surgical History History of cataract surgery S/P MARLENY-BSO Hx of tonsillectomy Hx of appendectomy Aortic valve replaced Social History Housing: House Alcohol intake: never Patient Tobacco Use Status: Former Tobacco user e-Cigarette/Vaping Use: Never Used Second Hand Smoke Exposure: No service: No Current occupational status: retired Cognitive needs: No Hearing needs: No Vision needs: Yes (glasses) Questionnaire PHQ-9 Over the last 2 weeks, how often have you been bothered by any of the following problems? 1. Little interest or pleasure in doing things: not at all 2. Feeling down, depressed, or hopeless: not at all 3. Trouble falling or staying asleep, or sleeping too much: not at all 4. Feeling tired or having little energy: not at all 5. Poor appetite or overeating: not at all 6. Feeling bad about yourself - or that you are a failure or have let yourself or your family down: not at all 7. Trouble concentrating on things, such as reading the newspaper or watching television: not at all 8. Moving or speaking so slowly that other people could have noticed. Or the opposite - being so fidgety or restless that you have been moving around a lot more than usual: not at all 9. Thoughts that you would be better off or of hurting yourself in some way: not at all Total score: 0 Depression Screening Interpretation: Negative Depression Screening Done: Yes Source: Developed by Drs. Iftikhar Wheeler, Akosua Contreras, Scooter Leon and colleagues, with an educational brooke from [employer]. Thrive Questionnaire Date Thrive assessed: 03/21/24 I am a: Patient What is your living situation today?: I have a steady place to live Within the past 12 months, did the food you bought not last and you didn't have the money to get more?: Never true Within the past 12 months, did you worry whether your food would run out before you got money to buy more?: Never true Do you have trouble paying for medicines?: No Do you have trouble getting transportation to medical appointments?: No Do you have trouble paying your heating and electricity bill?: No Do you have trouble taking care of your child, family member or friend?: No Do you have trouble with day-to-day activities such as bathing, preparing meals, shopping, managing finances, etc.?: No Are you currently unemployed and looking for a job?: No Are you interested in more education?: No Please select the resources that you would like help with: None Currently or been in a relationship where the following occur: No concerns reported THRIVE Score: 0 AUDIT C Alcohol Use Questionnaire (AUDIT-C) 1. How often do you have a drink containing alcohol?: Never 3. How often do you have six or more drinks on one occasion?: Never Total Score: 0 GANESH-7 AMB Questionnaire GANESH-7 Date GANESH - 7 assessed: 03/21/24 Feeling nervous, anxious, or on edge: 0 = Not at all Not being able to stop or control worryin = Not at all Worrying too much about different things: 0 = Not at all Trouble relaxin = Not at all Being so restless that it is hard to sit still: 0 = Not at all Becoming easily annoyed or irritable: 0 = Not at all Feeling afraid as if something awful might happen: 0 = Not at all Total GANESH-7 score (0-4 normal; 5-9 mild; 10-14 moderate; 15-21 severe): 0 Source: Developed by Drs. Iftikhar Wheeler, Akosua Contreras, Scooter Leon and colleagues, with an educational brooke from [employer]. Physical exam (Primary Care) Vital Signs: Last Vital Signs Pulse 82 03/21/24 16:04 BP 118/80 03/21/24 16:04 Pulse Ox 90 L 03/21/24 16:04 Oxygen Delivery Method Room Air 03/21/24 16:04 BMI result Body Mass Index 32.8 Tobacco/Smoking Status: Tobacco use Status Tobacco use date assessed 03/21/24 03/21/24 16:10 Patient Tobacco Use Status Former Tobacco user 03/21/24 16:10 e-Cigarette/Vaping Use Never Used 03/21/24 16:10 PHQ-9: PHQ-9 Score PHQ-9: Total score 0 03/21/24 16:10 Depression Screening Interpretation: Negative Thrive Assessment: Date of Thrive Assessment Date Thrive assessed 11/25/24 11/25/24 16:10 Currently or been in a relationship where the following occur: No concerns reported Const General: alert; No acute distress Eyes Conjunctivae: conjunctivae normal Resp Auscultation: clear to auscultation bilaterally Cardio Rate: regular rate Rhythm: regular rhythm GI Inspection: Yes normal to inspection Back/Spine/Pelvis Other: noted sever scoliosis. Extrem General: Yes normal to inspection and No edema Coding Level of Care Code Est Pt Level 4 (64645) Complex EM visit Add On G2211 Diagnoses Ascending aorta dilatation I77.810 Obesity (BMI 30-39.9) E66.9 Paroxysmal atrial fibrillation I48.0 Atrial fibrillation type: paroxysmal Aortic valve replaced Z95.2 Gastroesophageal reflux disease without esophagitis K21.9 Esophagitis presence: without esophagitis Hypoxia R09.02 Assessment & Plan Assessment & Plan (1) Ascending aorta dilatation: Comment: 2019 4.2 cm Code(s): I77.810 - Thoracic aortic ectasia Category: Medical Plan: Patient needs follow-up workup to determine the size. (2) Obesity (BMI 30-39.9): Code(s): E66.9 - Obesity, unspecified Category: Medical Plan: Diet and exercise (3) Atrial fibrillation: Code(s): I48.91 - Unspecified atrial fibrillation Category: Medical Qualifiers: Atrial fibrillation type: paroxysmal Qualified Code(s): I48.0 - Paroxysmal atrial fibrillation Plan: Patient on anticoagulation with Coumadin (4) Aortic valve replaced: Comment: Aortic stenosis December 22/2014 Dr. zamorano November 2018 echocardiogram normal LV impaired relaxation bioprosthetic valve normal, ascending aorta 4.2 cm Code(s): Z95.2 - Presence of prosthetic heart valve Category: Surgical Plan: Continue to monitor and follow up with Cardiology advised echo (5) GERD (gastroesophageal reflux disease): Code(s): K21.9 - Gastro-esophageal reflux disease without esophagitis Category: Medical Qualifiers: Esophagitis presence: without esophagitis Qualified Code(s): K21.9 - Gastro-esophageal reflux disease without esophagitis Plan: Avoid the foods that causes that usually spicy foods, tomato products, juices, coffee, soda and foods that your sensitive to. After eating do not lie down, allow 3-4 hours before in lie down. And keep the head of bed above 30 degrees to avoid the acid from going up. (6) Hypoxia: Code(s): R09.02 - Hypoxemia Category: Medical Plan: Oxygen tank ordered and will refer to Pulmonary [facility]O Orders: Orders Complete Blood Count Auto Diff Today I48.0 - Paroxysmal atrial fibrillation Free T4 (Free Thyroxine) Today I48.0 - Paroxysmal atrial fibrillation Vitamin B12 and Folate Today I48.0 - Paroxysmal atrial fibrillation Vitamin D 25-OH Total Today I48.0 - Paroxysmal atrial fibrillation CA echo transthoracic complete Today I48.0 - Paroxysmal atrial fibrillation Comprehensive Met. Panel Today I48.0 - Paroxysmal atrial fibrillation Thyroid Stimulating Hormone Today I48.0 - Paroxysmal atrial fibrillation B Type Natriuretic Peptide Today I48.0 - Paroxysmal atrial fibrillation Lipid Panel Today E78.00 - Pure hypercholesterolemia, unspecified, I48.0 - Paroxysmal atrial fibrillation Hemoglobin A1c Today I48.0 - Paroxysmal atrial fibrillation XR chest 2V Today R09.02 - Hypoxemia Referrals Pulmonology Referral R09.02 - Hypoxemia Medications: New Oxygen Home Use As directedOxygen 2L NC 1 ea 0RF R09.02 - Hypoxemia
[2024-03-21 16:04] VITALS: BP 118/80; PULSE 82; O2SAT 90; BMI 32.8
== END 2024-03-21 16:49 | disposition home or self-care (01) ==
PROVIDERS: PCP Internal Medicine; Visit Provider Internal Medicine
DX: I77.810 Thoracic aortic ectasia (principal); E66.9 Obesity, unspecified; I48.0 Paroxysmal atrial fibrillation; Z68.32 Body mass index [BMI] 32.0-32.9, adult; Z95.2 Presence of prosthetic heart valve; K21.9 Gastro-esophageal reflux disease without esophagitis; R09.02 Hypoxemia

== ENCOUNTER → 2024-03-21 15:25 | Outpatient (BNVA) | payer MEDICARE, OTHER, SELFPAY | PROVIDERS: PCP Internal Medicine; Visit Provider Internal Medicine | DX: Z23 Encounter for immunization (principal); I77.810 Thoracic aortic ectasia; E66.9 Obesity, unspecified; I48.0 Paroxysmal atrial fibrillation; K21.9 Gastro-esophageal reflux disease without esophagitis; R09.02 Hypoxemia; Z95.2 Presence of prosthetic heart valve | CPT/HCPCS: 90471; 90656; 96127; 99212 ==

== ENCOUNTER → 2024-04-12 13:51 | Outpatient (BNVA) | payer MEDICARE, OTHER, SELFPAY | PROVIDERS: PCP Internal Medicine; Visit Provider Internal Medicine | DX: Z79.01 Long term (current) use of anticoagulants (principal) ==

== ENCOUNTER → 2024-05-31 08:35 | Outpatient (BNVA) | payer MEDICARE, OTHER, SELFPAY | PROVIDERS: PCP Internal Medicine; Visit Provider Internal Medicine ==

== ENCOUNTER 2024-06-10 13:18 | Outpatient (AMB) | payer MEDICARE, OTHER, SELFPAY ==
[2024-06-10 13:19] VITALS: BP 130/60; PULSE 80; O2SAT 94; BMI 32.6
--- NOTE | 2024-06-10 13:19 | MHC.OFFVIS ---
Vital Signs 06/10/24 13:19 Height 5 ft 0.05 in Weight 167 lb BMI 32.6 BP 130/60 Blood Pressure Location Rt brachial Position Sitting Pulse 80 Pulse Source Doppler Pulse Oximetry (%) 94 Oxygen Delivery Method Room Air Intake Visit Reasons: Hypoxemia Allergies metoprolol Allergy (Unknown, Verified 06/10/24 13:23) RESP STRESS Sulfa (Sulfonamide Antibiotics) [SULFA (SULFONAMIDE ANTIBIOTICS)] Allergy (Unknown, Verified 06/10/24 13:23) RASH HPI HPI Hypoxemia: Details: 74-year-old lady, former 10 pack-year smoker, quit 40 years prior with underlying history of AFib and prior aortic valve replacement referred for evaluation of hypoxemia. Patient has very sedentary lifestyle, thus she denies any dyspnea on exertion. [facility] Medical History (Updated 06/10/24 @ 14:06 by Elie Goddard MD) Incisional hernia Renal calculi Osteoporosis Urge incontinence Atrial fibrillation Obesity (BMI 30-39.9) Cholelithiasis GERD (gastroesophageal reflux disease) Surgical History History of cataract surgery S/P MARLENY-BSO Hx of tonsillectomy Hx of appendectomy Aortic valve replaced Social History Housing: House Alcohol intake: never Patient Tobacco Use Status: Former Tobacco user e-Cigarette/Vaping Use: Never Used Second Hand Smoke Exposure: No service: No Current occupational status: retired Cognitive needs: No Hearing needs: No Vision needs: Yes (glasses) Review of Systems Const Denies daytime sleepiness, Denies excessive sweating, Denies fatigue, Denies fever(s), Denies lethargy, Denies malaise, Denies night sweats, Denies snoring and Denies weight loss Eyes Denies blurry vision and Denies itchy eyes ENT Denies nasal congestion, Denies post nasal drip, Denies sinus pain, Denies sinus pressure and Denies other ( Thrush) Card Denies chest pain, Denies pedal edema, Denies dyspnea, Denies orthopnea and Denies paroxysmal nocturnal dyspnea Resp Denies cough, Denies hemoptysis, Denies excessive phlegm production, Denies dyspnea, Denies snoring and Denies wheezing GI Denies abdominal pain and Denies heartburn Musc Denies myalgias, Denies arthralgias and Denies joint swelling Skin/Breast Denies rash Neuro Denies memory loss and Denies seizure-like activity Psych Denies abnormal sleep pattern, Denies anxiety and Denies memory loss Endo Denies excessive sweating, Denies fatigue and Denies heat intolerance [place]/Lymph Denies easy bruising Aller/Immun Denies itchy eyes, Denies seasonal rhinorrhea and Denies wheezing Physical Exam Vital Signs: Last Vital Signs Pulse 80 06/10/24 13:19 BP 130/60 06/10/24 13:19 Pulse Ox 94 06/10/24 13:19 Oxygen Delivery Method Room Air 06/10/24 13:19 BMI result Body Mass Index 32.6 Const General: no acute distress and alert Nutritional Appearance: obese Orientation/consciousness: Other orientation findings ( oriented) HEENT Head: Yes atraumatic Eyes General: appearance normal, both eyes and all related structures Sclerae: sclerae normal EOM: EOMs intact bilaterally Neck Neck: Yes supple Lymphatic: no lymphadenopathy noted Resp Effort & Inspection: normal respiratory effort and no use of accessory muscles Auscultation: clear to auscultation bilaterally Cardio Rate: regular rate Rhythm: regular rhythm Heart sounds: no gallops, no murmurs and no rubs Skin General skin exam: other ( warm) Extrem General: No clubbing, No cyanosis and No edema Office Procedures 6 Minute Walk Time:: 13:36 SPO2 % at rest: 96 Pulse at rest: 81 SPO2 % during excercise: 85 Pulse during excercise: 89 SPO2 % after excercise: 94 Pulse after excercise: 88 Distance in yards walked: 150 Latisha Score: 8 Performance Observations:: Patient walked unassisted on level ground. O2 saturation dropped to 85% after one minute with pulse of 89. Stopped to rest and O2 applied via nasal cannula at 1L with O2 saturation increased to 94%. Continued walk and after another minute desaturated to 87%..Increase O2 to 2L with very little change. Increased O2 to 3L with O2 saturation increased to 94%. Patient completed 2 more minutes walking maintaining O2 saturation of 93% or more and pulse of 87-89. Patient tires easily and becomes short of breath when walking distances. Patient would benefit with supplemental oxygen at 3L. [id number] - 6 Minute Walk Assessment & Plan Assessment & Plan (1) Supplemental oxygen dependent: Code(s): Z99.81 - Dependence on supplemental oxygen Category: Medical Plan: 6 minute walk test/supplemental oxygen evaluation performed. Patient requires supplemental oxygen at 3 L continuous flow to maintain normal oximetry with exertion. Supplemental oxygen order placed. (2) Dyspnea on exertion: Code(s): R06.09 - Other forms of dyspnea Category: Medical Plan: Appears to be related to underlying cardiac disease. Will obtain full PFT to evaluate possible pulmonary component. Orders: Orders PFT pulmonary function test Today R06.09 - Other forms of dyspnea AMB 6 minute walk Today R09.02 - Hypoxemia Coding Level of Care Code New Pt Level 4 (82735) Diagnoses Supplemental oxygen dependent Z99.81 Dyspnea on exertion R06.09 CPT Codes Coding ([id number])
[2024-06-10 13:59] VITALS: PULSE 81; O2SAT 96
== END 2024-06-10 14:06 | disposition home or self-care (01) ==
PROVIDERS: PCP Internal Medicine; Visit Provider Internal Medicine Pulmonary Disease
DX: Z99.81 Dependence on supplemental oxygen (principal); R06.09 Other forms of dyspnea
CPT/HCPCS: 94618; 99204

== ENCOUNTER → 2024-06-10 13:18 | Outpatient (BNVA) | payer MEDICARE, OTHER, SELFPAY | PROVIDERS: PCP Internal Medicine; Visit Provider Internal Medicine Pulmonary Disease | DX: R06.09 Other forms of dyspnea (principal); R09.02 Hypoxemia; Z95.2 Presence of prosthetic heart valve; Z99.81 Dependence on supplemental oxygen; Z87.891 Personal history of nicotine dependence | CPT/HCPCS: 94618; 99202 ==

== ENCOUNTER → 2024-06-14 12:08 | Outpatient (BNVA) | payer MEDICARE, OTHER, SELFPAY | PROVIDERS: PCP Internal Medicine; Visit Provider Internal Medicine ==

== ENCOUNTER 2024-06-21 15:50 | Outpatient (AMB) | payer MEDICARE, OTHER, SELFPAY ==
--- NOTE | 2024-06-21 16:17 | A.OFFPC_ITS ---
Vital Signs 06/21/24 16:19 Height 5 ft 0.5 in Weight 165 lb 4 oz BMI 31.7 BP 120/68 Blood Pressure Location Lt brachial Position Sitting Pulse 83 Pulse Source Pulse Oximeter Temp 97.1 F Temp Source Temporal Artery Scan Pulse Oximetry (%) 90 L Oxygen Delivery Method Room Air Intake Visit Reasons: Hypoxemia atrial fibrillation Intake Note: Patient is here to follow up on Hypoxemia, Afib. Flight Follower Required: No Air Export Operations Agent: Not Required per policy Accompanied by: Self / Same As Patient Allergies metoprolol Allergy (Unknown, Verified 06/21/24 16:19) RESP STRESS Sulfa (Sulfonamide Antibiotics) [SULFA (SULFONAMIDE ANTIBIOTICS)] Allergy (Unknown, Verified 06/21/24 16:19) RASH Medication List - Last Reconciled 06/21/24 by Susan Urias PA-C [id number] serr 1,500-400-100 mg-unit-mg (Glucosamine Daily Complex) 1 tab PO DAILY [IRON 1 TAB DAILY ] [LORATIDINE 1 TAB DAILY PRN ALLERGIES ] [id number] 0.4 mg-300 mcg- 250 mcg (Centrum Silver) 1 tab PO DAILY Oxygen Home Use As directedOxygen 2L NC [TUMS PO PRN] [VITAMIN D 3 1 TAB DAILY PO ] warfarin See Protocol ; 5 mg 2 days a week and 7.5 mg for the rest of the week or as directed 90 days Tobacco use date assessed: 06/21/24 Fall risk assessment: No Falls in past year Last assessed Fall Risk: 06/21/24 Dental Screening Dental Screen Date: 06/21/24 Did you have a dental visit in the last 12 months?: No Did you have a dental problem in the last 6 months where you did not have access to dental care?: No Was dental information given to patient?: Patient has dentist HPI Hypoxemia atrial fibrillation HPI Details 74-year-old female with past medical his tory of aortic valve replacement, atrial fibrillation, ascending aorta dilation last seen 02/2024 coming in for follow up. In review of the notes, patient was seen by pulmonology 05/2024 patient requiring supplemental oxygen 3 L continuous flow which was ordered. Presenting for follow-up regarding oxygen therapy logistics and evaluation for potential valvular heart disease. She has faced significant difficulties coordinating oxygen therapy with [facility] due to her travel and communication issues, resulting in expiration of prescriptions and missed appointments. The patient has a known history of valvular heart disease and expresses concern about the potential need for future valve replacement. Her last cardiology follow-up was several years ago. She denies experiencing significant shortness of breath, chest pains, dizziness, or syncope currently, with stable blood pressure readings reported. The patient had delays in obtaining an echocardiogram due to being overwhelmed and affected by COVID-19, but she desires to have it completed to assess her cardiac status. [facility] Medical History Incisional hernia Renal calculi Osteoporosis Urge incontinence Atrial fibrillation Obesity (BMI 30-39.9) Cholelithiasis GERD (gastroesophageal reflux disease) Surgical History History of cataract surgery S/P MARLENY-BSO Hx of tonsillectomy Hx of appendectomy Aortic valve replaced Social History Housing: House Alcohol intake: never Patient Tobacco Use Status: Former Tobacco user e-Cigarette/Vaping Use: Never Used Second Hand Smoke Exposure: Yes service: No Current occupational status: retired Cognitive needs: No Hearing needs: No Vision needs: Yes (glasses) Questionnaire PHQ-9 Over the last 2 weeks, how often have you been bothered by any of the following problems? 1. Little interest or pleasure in doing things: not at all 2. Feeling down, depressed, or hopeless: not at all 3. Trouble falling or staying asleep, or sleeping too much: not at all 4. Feeling tired or having little energy: not at all 5. Poor appetite or overeating: not at all 6. Feeling bad about yourself - or that you are a failure or have let yourself or your family down: not at all 7. Trouble concentrating on things, such as reading the newspaper or watching television: not at all 8. Moving or speaking so slowly that other people could have noticed. Or the opposite - being so fidgety or restless that you have been moving around a lot more than usual: not at all 9. Thoughts that you would be better off or of hurting yourself in some way: not at all Total score: 0 Depression Screening Interpretation: Negative Depression Screening Done: Yes Source: Developed by Drs. Iftikhar Wheeler, Scooter Mao and colleagues, with an educational brooke from [employer] for the rest of us. Thrive Questionnaire Date Thrive assessed: 06/21/24 I am a: Patient What is your living situation today?: I have a steady place to live Within the past 12 months, did the food you bought not last and you didn't have the money to get more?: Never true Within the past 12 months, did you worry whether your food would run out before you got money to buy more?: Never true Do you have trouble paying for medicines?: No Do you have trouble getting transportation to medical appointments?: No Do you have trouble paying your heating and electricity bill?: No Do you have trouble taking care of your child, family member or friend?: No Do you have trouble with day-to-day activities such as bathing, preparing meals, shopping, managing finances, etc.?: No Are you currently unemployed and looking for a job?: No Are you interested in more education?: No Please select the resources that you would like help with: None Currently or been in a relationship where the following occur: No concerns reported THRIVE Score: 0 AUDIT C Alcohol Use Questionnaire (AUDIT-C) 1. How often do you have a drink containing alcohol?: Never Total Score: 0 GANESH-7 AMB Questionnaire GANESH-7 Date GANESH - 7 assessed: 06/21/24 Feeling nervous, anxious, or on edge: 0 = Not at all Not being able to stop or control worryin = Not at all Worrying too much about different things: 0 = Not at all Trouble relaxin = Not at all Being so restless that it is hard to sit still: 0 = Not at all Becoming easily annoyed or irritable: 0 = Not at all Feeling afraid as if something awful might happen: 0 = Not at all Total GANESH-7 score (0-4 normal; 5-9 mild; 10-14 moderate; 15-21 severe): 0 Source: Developed by Akosua Smith Kurt Kroenke and colleagues, with an educational brooke from [employer] the rest of us. Review of Systems Const Denies body aches, Denies chills, Denies fever(s), Denies headache(s) and Denies poor appetite Eyes Reports no additional complaints ENT Denies dizziness and Denies headache(s) Card Denies chest pain, Denies lightheadedness, Denies dyspnea and Reports dyspnea on exertion (mild) Resp Denies cough, Denies dyspnea and Reports dyspnea on exertion (mild) GI Denies abdominal pain, Denies constipation, Denies diarrhea, Denies nausea and Denies vomiting Reports no additional complaints Musc Reports no additional complaints and Denies abnormal gait Skin/Breast Reports system reviewed and no additional complaints, except as documented Neuro Denies abnormal gait, Denies dizziness and Denies headache(s) Psych Reports no additional complaints Physical exam (Primary Care) Vital Signs: Last Vital Signs Temp 97.1 F 06/21/24 16:19 Pulse 83 06/21/24 16:19 BP 120/68 06/21/24 16:19 Pulse Ox 90 L 06/21/24 16:19 Oxygen Delivery Method Room Air 06/21/24 16:19 BMI result Body Mass Index 31.7 Tobacco/Smoking Status: Tobacco use Status Tobacco use date assessed 06/21/24 06/21/24 16:23 Patient Tobacco Use Status Former Tobacco user 06/21/24 16:18 e-Cigarette/Vaping Use Never Used 06/21/24 16:18 PHQ-9: PHQ-9 Score PHQ-9: Total score 0 06/21/24 16:23 Depression Screening Interpretation: Negative Thrive Assessment: Date of Thrive Assessment Date Thrive assessed 06/21/24 06/21/24 16:23 Currently or been in a relationship where the following occur: No concerns reported Const General: cooperative, healthy appearing, comfortable and no acute distress Orientation/consciousness: patient oriented x3 HENMT Head: Yes normocephalic Ears: hearing grossly normal bilaterally General nose exam: Normal external nose present Eyes General: appearance normal, both eyes and all related structures Conjunctivae: conjunctivae normal Neck Neck: Yes full ROM and Yes no lymphadenopathy Resp Effort & Inspection: normal respiratory effort Auscultation: clear to auscultation bilaterally, no crackles, no rales, no rhonchi and no wheezes Cardio Rate: regular rate Rhythm: regular rhythm Skin General skin exam: no rashes or lesions noted Neuro General: patient oriented x3 Gait exam (Neuro): Normal gait present Extrem General: Yes normal to inspection, Yes full ROM and No edema Psych Affect: normal affect Attitude: cooperative Insight: Good insight present (Psych) Judgement: Good judgement present (Psych) Coding Level of Care Code Est Pt Level 3 (91044) Diagnoses Gastroesophageal reflux disease without esophagitis K21.9 Esophagitis presence: without esophagitis Obesity (BMI 30-39.9) E66.9 Paroxysmal atrial fibrillation I48.0 Atrial fibrillation type: paroxysmal Supplemental oxygen dependent Z99.81 Hypoxia R09.02 Aortic valve replaced Z95.2 Assessment & Plan Assessment & Plan (1) GERD (gastroesophageal reflux disease): Code(s): K21.9 - Gastro-esophageal reflux disease without esophagitis Category: Medical Qualifiers: Esophagitis presence: without esophagitis Qualified Code(s): K21.9 - Gastro-esophageal reflux disease without esophagitis Plan: Avoid trigger foods such as citrus, tomato products, soda, caffeine, spicy foods and other foods that may be irritating to your stomach. Avoid laying flat 3-4 hours after eating and elevate the head of the bed 30 degrees to prevent acid from moving into the esophagus. (2) Obesity (BMI 30-39.9): Code(s): E66.9 - Obesity, unspecified Category: Medical Plan: Healthy diet and regular exercise is encouraged. (3) Atrial fibrillation: Code(s): I48.91 - Unspecified atrial fibrillation Category: Medical Qualifiers: Atrial fibrillation type: paroxysmal Qualified Code(s): I48.0 - Paroxysmal atrial fibrillation Plan: On anticoagulation with warfarin. Reminded patient about blood work and encouraged to reschedule echocardiogram (4) Supplemental oxygen dependent: Code(s): Z99.81 - Dependence on supplemental oxygen Category: Medical Plan: Recently seen by pulmonology who determined the need for supplemental oxygen at 3 liters/minute for exertion. (5) Hypoxia: Code(s): R09.02 - Hypoxemia Category: Medical Plan: Recently seen by pulmonology who determined the need for supplemental oxygen at 3 liters/minute for exertion. Continue to follow with pulmonology. Encouraged patient to reach out to [facility] to reschedule delivery. We will address the patient's difficulty with obtaining oxygen therapy by assisting her communication with [facility] and involving clinical nursing staff as necessary. Continued coordination with Dr. Maria and Dr. Goddard's offices is recommended to ensure comprehensive care. (6) Aortic valve replaced: Comment: Aortic stenosis December 22/2014 Dr. zamorano November 2018 echocardiogram normal LV impaired relaxation bioprosthetic valve normal, ascending aorta 4.2 cm Code(s): Z95.2 - Presence of prosthetic heart valve Category: Surgical Plan: She is advised to schedule the echocardiogram to evaluate her heart's valve function without further delay, and blood work will be performed to monitor her health status. Close monitoring of her cardiovascular symptoms is essential, particularly given her history of valvular heart disease She states the echocardiogram was postponed due to her feeling ?overwhelmed . I strongly advised patient to have this test done and recommended referral to Cardiology patient states she will reach out when she wants to schedule these t hings. Plan Patient was informed and verbally consented to the use of an ambient scribe for clinic note documentation during this visit. This note was constructed using voice recognition software. While every effort has been made to ensure accuracy and ui developer designer, still areas may have been included sometimes these areas may affect the content or meeting of the given symptoms. Total time spent caring for the patient today was 20 minutes. This includes time spent before the visit reviewing the chart, time spent during the visit, and time spent after the visit and documentation. Orders: Orders CA echo transthoracic complete 06/21/24 I48.0 - Paroxysmal atrial fibrillation
[2024-06-21 16:19] VITALS: BP 120/68; PULSE 83; TEMP 36.2; O2SAT 90; BMI 31.7
== END 2024-06-21 16:43 | disposition home or self-care (01) ==
PROVIDERS: PCP Internal Medicine
DX: K21.9 Gastro-esophageal reflux disease without esophagitis (principal); I48.0 Paroxysmal atrial fibrillation; Z68.31 Body mass index [BMI] 31.0-31.9, adult; E66.9 Obesity, unspecified; Z99.81 Dependence on supplemental oxygen; R09.02 Hypoxemia; Z95.2 Presence of prosthetic heart valve

== ENCOUNTER → 2024-06-21 15:50 | Outpatient (BNVA) | payer MEDICARE, OTHER, SELFPAY | PROVIDERS: PCP Internal Medicine | DX: K21.9 Gastro-esophageal reflux disease without esophagitis (principal); E66.9 Obesity, unspecified; I48.0 Paroxysmal atrial fibrillation; R09.02 Hypoxemia; Z99.81 Dependence on supplemental oxygen; Z95.2 Presence of prosthetic heart valve | CPT/HCPCS: 99212 ==

== ENCOUNTER → 2024-07-26 11:19 | Outpatient (BNVA) | payer MEDICARE, OTHER, SELFPAY | PROVIDERS: PCP Internal Medicine; Visit Provider Internal Medicine Medical Oncology ==

== ENCOUNTER → 2024-08-09 10:44 | Outpatient (BNVA) | payer MEDICARE, OTHER, SELFPAY | PROVIDERS: PCP Internal Medicine; Visit Provider Internal Medicine Medical Oncology ==

== ENCOUNTER → 2024-08-23 10:03 | Outpatient (BNVA) | payer MEDICARE, OTHER, SELFPAY | PROVIDERS: PCP Internal Medicine; Visit Provider Internal Medicine Medical Oncology ==

== ENCOUNTER 2024-08-25 14:02 | Outpatient (AMB) | payer MEDICARE, OTHER, SELFPAY ==
--- NOTE | 2024-08-25 14:04 | MHC.OFFVIS ---
Vital Signs 08/25/24 14:05 Height 5 ft 0.5 in Weight 171 lb 15.369 oz BMI 33.0 BP 130/64 Blood Pressure Location Rt brachial Position Sitting Pulse 91 Pulse Source Pulse Oximeter Pulse Oximetry (%) 90 L Oxygen Delivery Method Room Air Intake Visit Reasons: Hypoxia Allergies metoprolol Allergy (Unknown, Verified 08/25/24 15:22) RESP STRESS Sulfa (Sulfonamide Antibiotics) [SULFA (SULFONAMIDE ANTIBIOTICS)] Allergy (Unknown, Verified 08/25/24 15:22) RASH Medication List - Last Reconciled 08/25/24 by Fabi Johnson MD [id number] serr 1,500-400-100 mg-unit-mg (Glucosamine Daily Complex) 1 tab PO DAILY [IRON 1 TAB DAILY ] [LORATIDINE 1 TAB DAILY PRN ALLERGIES ] oenkjzxg-ezl-TS-lycopen-lutein 0.4 mg-300 mcg- 250 mcg (Centrum Silver) 1 tab PO DAILY Oxygen Home Use As directedOxygen 2L NC [TUMS PO PRN] [VITAMIN D 3 1 TAB DAILY PO ] warfarin See Protocol ; 5 mg 2 days a week and 7.5 mg for the rest of the week or as directed 90 days Do you need a note to return to daycare/school/sports/work: No HPI HPI Hypoxia: Details: This 74 years old very pleasant female is being seen for the 1st time by me for pulmonary evaluation, , reason for her hypoxemia and ongoing management. About 2 months ago she was sent here by her primary care physician for 6 minutes walk, and she was found to have O2 desaturation very quickly on walking. She was advised to go on oxygen therapy. She does have stationary concentrator at home and uses mostly at night at 2 L/minute. She has a lightweight portable cylinder that she is supposed to use during the daytime with any physical activity. As she has not been going out of the house much so she is really not using the portable unit except once in a while. She still has some difficulty in using the portable unit. I have reviewed her previous records the in our old system, and interviewed her. She does not understand why she has low oxygen. She has history of smoking for about 15-20 years in the remote past, but quit back in 1985. Since then she has been short of breath on exertion but no cough or wheezing. She had aortic well replacement by open heart surgery in 2013, After that she started checking her O2 sats. And noted that sometimes her O2 sat was below 90%, but she did not seek any attention. During the COVID years she was checking her O2 sat more frequently. Now recently she had mentioned it to her primary care physician who sent. Her for 6 minutes walk test. Other important piece of information is that she has had severe dextroscoliosis, . Since Back in 1960s she had spinal fusion at [facility] . [facility] is reviewed, [facility] Medical History (Updated 08/25/24 @ 16:54 by Fabi Johnson MD) Restrictive lung disease Dextroscoliosis of thoracolumbar spine Incisional hernia Renal calculi Osteoporosis Urge incontinence Atrial fibrillation Obesity (BMI 30-39.9) Cholelithiasis GERD (gastroesophageal reflux disease) Surgical History History of cataract surgery S/P MARLENY-BSO Hx of tonsillectomy Hx of appendectomy Aortic valve replaced Social History Housing: House Alcohol intake: never Patient Tobacco Use Status: Former Tobacco user e-Cigarette/Vaping Use: Never Used Second Hand Smoke Exposure: Yes service: No Current occupational status: retired Cognitive needs: No Hearing needs: No Vision needs: Yes (glasses) Review of Systems Const All systems reviewed & are unremarkable except as noted in HPI and below Eyes Reports no additional complaints ENT Reports no additional complaints Card Denies chest pain, Denies irregular heart rhythm, Denies leg edema and Reports dyspnea on exertion Resp Reports as per HPI and Reports dyspnea on exertion GI Reports no additional complaints Reports no additional complaints Musc Reports back pain and Reports other (Spinal deformity since ) Skin/Breast Reports system reviewed and no additional complaints, except as documented Neuro Reports no additional complaints Physical Exam Vital Signs: Last Vital Signs Pulse 91 08/25/24 14:05 BP 130/64 08/25/24 14:05 Pulse Ox 90 L 08/25/24 14:05 Oxygen Delivery Method Room Air 08/25/24 14:05 BMI result Body Mass Index 33.0 Const General: healthy appearing (Except for spinal deformity), comfortable, no acute distress, alert and awake Orientation/consciousness: patient oriented x3 HEENT Head: Yes normal to inspection General nose exam: No nasal polyps present and No nasal discharge present Face and sinus: Yes sinuses nontender Mouth: oropharynx normal Throat: Yes posterior oropharynx normal Eyes General: appearance normal, both eyes and all related structures Neck Neck: Yes normal visual inspection, Yes no lymphadenopathy, Yes trachea midline and Yes no JVD Thyroid: Thyroid normal Chest Chest palpation & inspection: abnormal inspection of the chest (Midline scar from previous surgery), normal palpation of entire chest wall and no tenderness Resp Effort & Inspection: normal respiratory effort Auscultation: clear to auscultation bilaterally, no crackles, no wheezes and diminished lung sounds Cardio Palpation: normal PMI Rate: regular rate Rhythm: regular rhythm Heart sounds: no gallops, no murmurs and Other heart sounds present (Status post aortic well replacement) Peripheral pulses: Peripheral pulses 2+ throughout GI Palpation (GI): Soft to palpation, nontender, No hepatosplenomegaly present and no masses Auscultation: normal bowel sounds Back/Spine/Pelvis Thoracic/Lumbar Spine: thoracic and lumbar spine normal to inspection, Thoracic/lumbar spine scar(s) and Thoracic/lumbar scoliosis Skin General skin exam: no rashes or lesions noted Neuro General: patient oriented x3 and no focal motor deficits Cranial nerves: Yes CN's II-XII intact bilaterally Extrem General: Yes normal to inspection, Yes no clubbing, cyanosis or edema and Yes no calf tenderness Psych Appearance: grossly normal and well kempt Speech and movement: Normal speech and movement present Results Reviewed Results Reviewed: SPIROMETRY O2 SAT AT REST ON ROOM AIR 90% ON MINIMAL WALKING DROPS DOWN TO 88% SHE WAS STARTED ON O2 4 L/MINUTE, THEN WALKED AGAIN FOR THE LENGTH OF THE HALLWAY AND O2 SAT REMAINED AT 93%. PATIENT IS TO HAVE A CHEST X-RAY. AND COMPLETE LAB. Assessment & Plan Assessment & Plan (1) Aortic valve replaced: Comment: Aortic stenosis December 22/2014 Dr. zamorano November 2018 echocardiogram normal LV impaired relaxation bioprosthetic valve normal, ascending aorta 4.2 cm Code(s): Z95.2 - Presence of prosthetic heart valve Category: Surgical Plan: I HAD A LONG DISCUSSION WITH THE PATIENT ABOUT HAVING HAD AORTICVALVE REPLACED IN 2013. SHE DOES HAVE MID STERNAL SCAR FROM THE SURGERY. THIS MAY BE CONTRIBUTING TO HER RESTRICTIVE LUNG DISORDER. (2) Dextroscoliosis of thoracolumbar spine: Comment: PATIENT HAS A PROMINENT DEXTROSCOLIOSIS, HAS HAD SPINAL FUSION SURGERY IN YOUNGER AGE. THIS IS DEFINITELY AFFECTING HER LUNG CAPACITY, AND CAUSING RESTRICTIVE LUNG DISORDER. Code(s): M41.85 - Other forms of scoliosis, thoracolumbar region Category: Medical Plan: EXPLAINED TO THE PATIENT, THE CAUSE OF RESTRICTIVE LUNG DISEASE AND HYPOXEMIA. SHE IS INSTRUCTED TO TRY TO DO DEEP BREATHING EXERCISES MUCH POSSIBLE. (3) Hypoxia: Comment: ACCORDING TO THE PATIENT SHE HAS HAD INTERMITTENT O2 DESATURATIONS, FALLING BELOW 90%. BUT RECENTLY CHECKED IN OUR OFFICE WITH 6 MINUTES WALK , SHE DESATURATED VERY. QUICKLY ON WALKING AND SHE HAS BEEN PLACED. ON OXYGEN PATIENT HAS POOR UNDERSTANDING ABOUT THE USE OF OXYGEN. Code(s): R09.02 - Hypoxemia Category: Medical Plan: EXPLAINED THAT SHE SHOULD USE O2 WITH THE STATIONARY CONCENTRATOR AT 2 L/MINUTE DURING THE NIGHT. SHE CAN USE O2 2-3 L/MINUTE DURING THE DAYTIME P.R.N. IF SHE IS DOING ANY PHYSICAL ACTIVITY OR IF SHE FEELS SHORT OF BREATH SHE SHOULD USE O2 WITH THE LIGHTWEIGHT PORTABLE UNIT AT 4 L/MINUTE WHEN SHE GOES OUTDOORS, FOR ANY OUTDOOR ACTIVITY. PATIENT WAS GIVEN FULL TRAINING FOR USING THE PORTABLE UNIT. (4) Restrictive lung disease: Comment: NOTED ABOVE SHE HAS MODERATELY SEVERE RESTRICTIVE LUNG DISORDER, AND THIS IS SECONDARY TO DEXTROSCOLIOSIS. THIS IS THE MAIN CAUSE OF HER HYPOXEMIA. Code(s): J98.4 - Other disorders of lung Category: Medical Plan: PATIENT NEEDED A GOOD EXPLANATION ABOUT WHY SHE IS HAVING HYPOXEMIA . SHE WAS EDUCATED THOROUGHLY. AT SOME POINT SHE WOULD NEED A COMPLETE PULMONARY FUNCTION TEST INCLUDING LUNG VOLUMES AND DIFFUSION CAPACITY . I WILL RECHECK HER IN ABOUT 6 WEEKS. Coding Level of Care Code New Pt Level 4 (09482) Diagnoses Aortic valve replaced Z95.2 Dextroscoliosis of thoracolumbar spine M41.85 Hypoxia R09.02 Restrictive lung disease J98.4
[2024-08-25 14:05] VITALS: BP 130/64; PULSE 91; O2SAT 90; BMI 33.0
== END 2024-08-25 15:51 | disposition home or self-care (01) ==
LOC: HO.HPS 14:03
PROVIDERS: PCP Internal Medicine; Referring Provider Internal Medicine; Visit Provider Internal Medicine
DX: Z95.2 Presence of prosthetic heart valve (principal); M41.85 Other forms of scoliosis, thoracolumbar region; R09.02 Hypoxemia; J98.4 Other disorders of lung
CPT/HCPCS: 99204

== ENCOUNTER → 2024-08-25 14:02 | Outpatient (BNVA) | payer MEDICARE, OTHER, SELFPAY | PROVIDERS: PCP Internal Medicine; Referring Provider Internal Medicine; Visit Provider Internal Medicine | DX: J98.4 Other disorders of lung (principal); R09.02 Hypoxemia; M41.85 Other forms of scoliosis, thoracolumbar region; Z95.2 Presence of prosthetic heart valve | CPT/HCPCS: 99202 ==

== ENCOUNTER → 2024-09-06 07:22 | Outpatient (BNVA) | payer MEDICARE, OTHER, SELFPAY | PROVIDERS: PCP Internal Medicine; Visit Provider Internal Medicine Medical Oncology | DX: Z13.89 Encounter for screening for other disorder (principal) ==

== ENCOUNTER → 2024-09-20 07:38 | Outpatient (BNVA) | payer MEDICARE, OTHER, SELFPAY | PROVIDERS: PCP Internal Medicine; Visit Provider Internal Medicine Medical Oncology | DX: Z13.89 Encounter for screening for other disorder (principal) ==

== ENCOUNTER → 2024-10-04 11:37 | Outpatient (BNVA) | payer MEDICARE, OTHER, SELFPAY | PROVIDERS: PCP Internal Medicine; Visit Provider Internal Medicine Medical Oncology ==

== ENCOUNTER 2024-10-12 14:35 | Outpatient (AMB) | payer MEDICARE, OTHER, SELFPAY ==
--- NOTE | 2024-10-12 14:40 | MHC.PC.OV ---
Vital Signs 10/12/24 14:42 Height 5 ft 0.5 in Weight 169 lb 6 oz BMI 32.5 BP 130/78 Blood Pressure Location Rt brachial Position Sitting Pulse 78 Pulse Source Pulse Oximeter Temp 97.1 F Temp Source Temporal Artery Scan Pulse Oximetry (%) 98 Oxygen Delivery Method Nasal Cannula Intake Visit Reasons: f/u Echo and AFib, resched Intake Note: Patient is here to follow up on Echo and Afib. Customer Service Trainer Required: No Other Sales Support Worker: Not Required per policy Accompanied by: Self / Same As Patient Allergies metoprolol Allergy (Unknown, Verified 10/12/24 14:41) RESP STRESS Sulfa (Sulfonamide Antibiotics) (SULFA (SULFONAMIDE ANTIBIOTICS)) Allergy (Unknown, Verified 10/12/24 14:41) RASH Medication List - Last Reconciled 10/12/24 by Susan Urias PA-C [id number] serr 1,500-400-100 mg-unit-mg (Glucosamine Daily Complex) 1 tab PO DAILY [IRON 1 TAB DAILY ] [LORATIDINE 1 TAB DAILY PRN ALLERGIES ] zumvobii-hbk-QR-lycopen-lutein 0.4 mg-300 mcg- 250 mcg (Centrum Silver) 1 tab PO DAILY Oxygen Home Use As directedOxygen 2L NC [TUMS PO PRN] [VITAMIN D 3 1 TAB DAILY PO ] warfarin See Protocol ; 5 mg 2 days a week and 7.5 mg for the rest of the week or as directed 90 days Tobacco use date assessed: 10/12/24 Fall risk assessment: No Falls in past year Last assessed Fall Risk: 10/12/24 Dental Screening Dental Screen Date: 06/21/24 HPI f/u Echo and AFib, resched HPI Details 74-year-old female with a past medical history of aortic valve replacement, atrial fibrillation, ascending aorta dilation last seen 05/2024 coming in for follow up.?In review of the notes, patient was seen by pulmonology 08/2024 recommended the use of oxygen at bedtime recheck labs and x-ray and follow up in 6 weeks.?She was scheduled for echocardiogram at her last visit but appears to have the test tomorrow.? Presenting with palpitations, hypertension, and oxygen therapy management. Palpitations occur intermittently, mainly due to dehydration or high salt intake, approximately once every other month, without chest pain. Oxygen therapy was started for low saturation, now improved to 98%, used at night and when walking. Urinary incontinence has been ongoing for months, with urgency and dribbling. [facility] Medical History Restrictive lung disease Dextroscoliosis of thoracolumbar spine Incisional hernia Renal calculi Osteoporosis Urge incontinence Atrial fibrillation Obesity (BMI 30-39.9) Cholelithiasis GERD (gastroesophageal reflux disease) Surgical History History of cataract surgery S/P MARLENY-BSO Hx of tonsillectomy Hx of appendectomy Aortic valve replaced Social History Housing: House Alcohol intake: never Patient Tobacco Use Status: Former Tobacco user e-Cigarette/Vaping Use: Never Used Second Hand Smoke Exposure: Yes service: No Current occupational status: retired Cognitive needs: No Hearing needs: No Vision needs: Yes (glasses) Questionnaire PHQ-9 Over the last 2 weeks, how often have you been bothered by any of the following problems? 1. Little interest or pleasure in doing things: not at all 2. Feeling down, depressed, or hopeless: not at all 3. Trouble falling or staying asleep, or sleeping too much: not at all 4. Feeling tired or having little energy: nearly every day 5. Poor appetite or overeating: not at all 6. Feeling bad about yourself - or that you are a failure or have let yourself or your family down: not at all 7. Trouble concentrating on things, such as reading the newspaper or watching television: not at all 8. Moving or speaking so slowly that other people could have noticed. Or the opposite - being so fidgety or restless that you have been moving around a lot more than usual: not at all 9. Thoughts that you would be better off or of hurting yourself in some way: not at all Total score: 3 Depression Screening Interpretation: Negative Depression Screening Done: Yes Source: Developed by Drs. Iftikhar Wheeler, Akosua Contreras, Scooter Leon and colleagues, with an educational brooke from [employer]. Thrive Questionnaire Date Thrive assessed: 10/05/24 I am a: Patient What is your living situation today?: I have a steady place to live Within the past 12 months, did the food you bought not last and you didn't have the money to get more?: Never true Within the past 12 months, did you worry whether your food would run out before you got money to buy more?: Never true Do you have trouble paying for medicines?: No Do you have trouble getting transportation to medical appointments?: No Do you have trouble paying your heating and electricity bill?: No Do you have trouble taking care of your child, family member or friend?: I choose not to answer this question Do you have trouble with day-to-day activities such as bathing, preparing meals, shopping, managing finances, etc.?: No Are you currently unemployed and looking for a job?: No Are you interested in more education?: No Please select the resources that you would like help with: None Currently or been in a relationship where the following occur: No concerns reported THRIVE Score: 0 AUDIT C Alcohol Use Questionnaire (AUDIT-C) 1. How often do you have a drink containing alcohol?: Never Total Score: 0 GANESH-7 AMB Questionnaire GANESH-7 Date GANESH - 7 assessed: 06/21/24 Feeling nervous, anxious, or on edge: 0 = Not at all Not being able to stop or control worryin = Not at all Worrying too much about different things: 0 = Not at all Trouble relaxin = Not at all Being so restless that it is hard to sit still: 0 = Not at all Becoming easily annoyed or irritable: 0 = Not at all Feeling afraid as if something awful might happen: 0 = Not at all Total GANESH-7 score (0-4 normal; 5-9 mild; 10-14 moderate; 15-21 severe): 0 Source: Developed by Drs. Iftikhar Wheeler, Akosua Contreras, Scooter Leon and colleagues, with an educational brooke from [employer]. Review of Systems Const Denies body aches, Denies chills, Denies fever(s), Denies headache(s) and Denies poor appetite Eyes Reports no additional complaints ENT Denies dizziness and Denies headache(s) Card Details: palpitations once every few months assoc w/ poor fluid intake Denies chest pain, Denies syncope, Denies edema, Denies irregular heart rhythm, Denies lightheadedness and Denies dyspnea Resp Denies cough and Denies dyspnea GI Denies abdominal pain, Denies nausea and Denies vomiting Reports no additional complaints Musc Reports no additional complaints and Denies abnormal gait Skin/Breast Reports system reviewed and no additional complaints, except as documented Neuro Denies abnormal gait, Denies dizziness, Denies syncope and Denies headache(s) Psych Reports no additional complaints Physical exam (Primary Care) Vital Signs: Last Vital Signs Temp 97.1 F 10/12/24 14:42 Pulse 78 10/12/24 14:42 BP 130/78 10/12/24 14:42 Pulse Ox 98 10/12/24 14:42 Oxygen Delivery Method Nasal Cannula 10/12/24 14:42 BMI result Body Mass Index 32.5 Tobacco/Smoking Status: Tobacco use Status Tobacco use date assessed 10/12/24 10/12/24 14:45 Patient Tobacco Use Status Former Tobacco user 10/12/24 14:45 e-Cigarette/Vaping Use Never Used 10/12/24 14:45 PHQ-9: PHQ-9 Score PHQ-9: Total score 3 10/12/24 14:45 Depression Screening Interpretation: Negative Thrive Assessment: Date of Thrive Assessment Date Thrive assessed 10/05/24 10/12/24 14:45 Currently or been in a relationship where the following occur: No concerns reported Const General: cooperative, healthy appearing, comfortable and no acute distress Orientation/consciousness: patient oriented x3 HENMT Head: Yes normocephalic Ears: hearing grossly normal bilaterally General nose exam: Normal external nose present Eyes General: appearance normal, both eyes and all related structures Conjunctivae: conjunctivae normal Neck Neck: Yes full ROM and Yes no lymphadenopathy Resp Effort & Inspection: normal respiratory effort Auscultation: clear to auscultation bilaterally, no crackles, no rales, no rhonchi and no wheezes Cardio Rate: regular rate Rhythm: regular rhythm Skin General skin exam: no rashes or lesions noted Neuro General: patient oriented x3 Gait exam (Neuro): Normal gait present Extrem General: Yes normal to inspection, Yes full ROM and No edema Psych Affect: normal affect Attitude: cooperative Insight: Good insight present (Psych) Judgement: Good judgement present (Psych) Coding Level of Care Code Est Pt Level 4 (07497) Diagnoses Gastroesophageal reflux disease without esophagitis K21.9 Esophagitis presence: without esophagitis Obesity (BMI 30-39.9) E66.9 Supplemental oxygen dependent Z99.81 Hypoxia R09.02 Aortic valve replaced Z95.2 Paroxysmal atrial fibrillation I48.0 Atrial fibrillation type: paroxysmal Urinary incontinence R32 Assessment & Plan Assessment & Plan (1) GERD (gastroesophageal reflux disease): Code(s): K21.9 - Gastro-esophageal reflux disease without esophagitis Category: Medical Qualifiers: Esophagitis presence: without esophagitis Qualified Code(s): K21.9 - Gastro-esophageal reflux disease without esophagitis Plan: Avoid trigger foods such as citrus, tomato products, soda, caffeine, spicy foods and other foods that may be irritating to your stomach. Avoid laying flat 3-4 hours after eating and elevate the head of the bed 30 degrees to prevent acid from moving into the esophagus. (2) Obesity (BMI 30-39.9): Code(s): E66.9 - Obesity, unspecified Category: Medical Plan: Healthy diet and regular exercise is encouraged. (3) Supplemental oxygen dependent: Code(s): Z99.81 - Dependence on supplemental oxygen Category: Medical Plan: Recently seen by pulmonology who determined the need for supplemental oxygen at 3 liters/minute for exertion. (4) Hypoxia: Comment: ACCORDING TO THE PATIENT SHE HAS HAD INTERMITTENT O2 DESATURATIONS, FALLING BELOW 90%. BUT RECENTLY CHECKED IN OUR OFFICE WITH 6 MINUTES WALK , SHE DESATURATED VERY. QUICKLY ON WALKING AND SHE HAS BEEN PLACED. ON OXYGEN PATIENT HAS POOR UNDERSTANDING ABOUT THE USE OF OXYGEN. Code(s): R09.02 - Hypoxemia Category: Medical Plan: Recently seen by pulmonology who determined the need for supplemental oxygen at 3 liters/minute for exertion. Continue to follow with pulmonology. Continued coordination with Dr. Maria and Dr. Goddard's offices is recommended to ensure comprehensive care. (5) Aortic valve replaced: Comment: Aortic stenosis December 22/2014 Dr. zamorano November 2018 echocardiogram normal LV impaired relaxation bioprosthetic valve normal, ascending aorta 4.2 cm Code(s): Z95.2 - Presence of prosthetic heart valve Category: Surgical Plan: Close monitoring of her cardiovascular symptoms is essential, particularly given her history of valvular heart disease. She has no symptoms at this time. Dr. Maria had ordered for an echocardiogram and patient had previously reported she had a tour counselor and I advised her to reach out to the office to schedule an appointment. Patient states she has not been seen in 5 years and may need new referral. [place] [facility] [place] She states the echocardiogram was postponed due to weather and other social issues. She is scheduled to have the echocardiogram tomorrow and agrees to go to this visit. (6) Atrial fibrillation: Code(s): I48.91 - Unspecified atrial fibrillation Category: Medical Qualifiers: Atrial fibrillation type: paroxysmal Qualified Code(s): I48.0 - Paroxysmal atrial fibrillation Plan: Patient is currently on full oral anticoagulation with warfarin and follows with the anticoagulation clinic. Referral was placed to cardiology as she has not been seen in over 5 years. (7) Urinary incontinence: Code(s): R32 - Unspecified urinary incontinence Category: Medical Plan: Patient reports intermittent urinary incontinence primarily urinary leakage. Denies any burning with urination, frequency or any other symptoms. Plan to obtain urinalysis. She is declining additional workup at this time. Plan The patient will have an echocardiogram and blood work to evaluate cardiac health and palpitations. Non-fasting labs will be done to ease the process, excluding cholesterol tests. A urine test will assess urinary incontinence. The patient should stay hydrated and limit salt to manage palpitations. Oxygen therapy continues at night and during activity. A cardiology referral is made for heart murmur and valve follow-up. The primary care follow-up will review results and update the care plan. Patient was informed and verbally consented to the use of an ambient scribe for clinic note documentation during this visit. This note was constructed using voice recognition software. While every effort has been made to ensure accuracy and rn psychiatric, still areas may have been included sometimes these areas may affect the content or meeting of the given symptoms. Total time spent caring for the patient today was 20 minutes. This includes time spent before the visit reviewing the chart, time spent during the visit, and time spent after the visit and documentation. 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
[2024-10-12 14:42] VITALS: BP 130/78; PULSE 78; TEMP 36.2; O2SAT 98; BMI 32.5
== END 2024-10-12 15:20 | disposition home or self-care (01) ==
LOC: HO.HMCH 14:35
PROVIDERS: PCP Internal Medicine
DX: K21.9 Gastro-esophageal reflux disease without esophagitis (principal); E66.9 Obesity, unspecified; I48.0 Paroxysmal atrial fibrillation; Z68.32 Body mass index [BMI] 32.0-32.9, adult; Z99.81 Dependence on supplemental oxygen; R09.02 Hypoxemia; Z95.2 Presence of prosthetic heart valve; R32 Unspecified urinary incontinence

== ENCOUNTER → 2024-10-12 14:35 | Outpatient (BNVA) | payer MEDICARE, OTHER, SELFPAY | PROVIDERS: PCP Internal Medicine | DX: K21.9 Gastro-esophageal reflux disease without esophagitis (principal); R09.02 Hypoxemia; I48.0 Paroxysmal atrial fibrillation; R32 Unspecified urinary incontinence; Z99.81 Dependence on supplemental oxygen; Z95.2 Presence of prosthetic heart valve; E66.9 Obesity, unspecified; Z68.32 Body mass index [BMI] 32.0-32.9, adult; Z71.3 Dietary counseling and surveillance; Z87.891 Personal history of nicotine dependence | CPT/HCPCS: 99212 ==

== ENCOUNTER → 2024-10-18 09:15 | Outpatient (BNVA) | payer MEDICARE, OTHER, SELFPAY | PROVIDERS: PCP Internal Medicine; Visit Provider Internal Medicine Medical Oncology | DX: Z13.89 Encounter for screening for other disorder (principal) ==

== ENCOUNTER 2025-01-02 14:22 | Outpatient (AMB) | payer MEDICARE, OTHER, SELFPAY ==
[2025-01-02 14:37] LABS: Prothrombin Time Whole Bld POC 23.3 sec (11.1-13.5); ~PT, ~INR - Anti Coag Clinic 1.9 (0.9-1.1)
--- NOTE | 2025-01-02 14:56 | MHC.OFFVISCO ---
Intake Intake Visit Reasons: Anticoagulation Allergies metoprolol Allergy (Unknown, Verified 01/02/25 14:26) RESP STRESS Sulfa (Sulfonamide Antibiotics) (SULFA (SULFONAMIDE ANTIBIOTICS)) Allergy (Unknown, Verified 01/02/25 14:26) RASH Medication List - Last Reconciled 01/02/25 by Rachel Pederson RN [id number] serr 1,500-400-100 mg-unit-mg (Glucosamine Daily Complex) 1 tab PO DAILY [IRON 1 TAB DAILY ] [LORATIDINE 1 TAB DAILY PRN ALLERGIES ] qucozxnq-wte-CL-lycopen-lutein 0.4 mg-300 mcg- 250 mcg (Centrum Silver) 1 tab PO DAILY Oxygen Home Use As directedOxygen 2L NC [TUMS PO PRN] [VITAMIN D 3 1 TAB DAILY PO ] warfarin See Protocol ; 5 mg 2 days a week and 7.5 mg for the rest of the week or as directed 90 days Nursing Note Pt came to [facility] for meter to meter correlation - she demonstrated proficient POC skills, meter hx accurate INR: 2.0 POC/ INR [facility] 1.9 in therapeutic range Medications and supplements reviewed *SKIN RASH ON RIGHT SIDE OF NECK AND AROUND HER EYES - TO SEE MD IN NEAR FUTURE, IN THE MEANTIME SHE WAS ENC TO DECREASE TOMATOES, WASH PILLOW CASE WITH SENSATIVE SKIN LAUNDRY SOAP LIKE TIDE, DO NOT USE SOAP ON HER FACE AND STOP THE LOTION THAT [facility] AND ASK PHARMACIST FOR RECOMMENDATIONS UNTIL SEE MD No changes in medications, or supplements, Denies any signs and symptoms of bleeding or bruising or clotting. Bleeding, bruising, clotting discussed Nutritional guidance given - RESUME GREENS AT END OF THE WEEK Dose: INCREASE DOSE 7.5MG X 6 DAYS/ 5MG SATURDAYS F/U INR: 2 WEEKS CALL WITH ANY MEDICATION CHANGES Patient verbalizes understanding of instructions given Anti-Coag Initial Assessment Social Hx Patient Tobacco Use Status: Former Tobacco user alcohol intake: never Anti-Coag. Education Record Education Intervention/Brief Description of Teaching 9. Demonstrates understanding of notifying all providers of pending dental 10. Able to state Home Care instructions Additional comments: gave updated diet/ food photos Questionnaires HAS-BLED Does the patient had uncontrolled Hypertension?: No Does the patient have renal disease?: No Does the patient have liver disease?: No Does the patient have a history of stroke?: No Has the patient had major bleeding or predisposition to bleeding?: No Does the patient have labile INRs?: Yes Is the patient over 65 years of age?: Yes Is the patient on medications that gives them a predisposition to bleeding?: Yes Does the patient use alcohol?: No HAS-BLED Score: 3 CHADSVASC Age: 75 or over Gender: Female Does the patient have a history of CHF?: No Does the patient have a history of Hypertension?: No Does the patient have a history of Stroke/TIA/Thromboembolism?: No Does the patient have a history of Vascular Disease (prior MA, PAD or aortic plaque)?: No Does the patient have a history of Diabetes?: No CHADS VACS Score: 3 Alex Prediction Score Rsk VTE Active Cancer: No Previous VTE, excluding superficial vein thrombosis: No Reduced mobility: Yes Already known Thrombophilic Condition: No With-in last month Trauma and/or Surgery: No Elderly 70 year or older: Yes Heart and/or Respiratory Failure: No Acute Myocardial infarction and/or Ischemic Stroke: No Acute Infection and/or Rheumatologic Disorder: No Obesity (BMI 30 or greater): Yes Ongoing Hormonal Treatment: No Score: 5 Alex Score less than 4; Low Risk of VTE Alex Score 4 or greater; High Risk of VTE Coding Level of Care Code Est Patient Level 2 Diagnoses Current use of anticoagulant therapy Z79.01 Assessment & Plan Assessment & Plan (1) Current use of anticoagulant therapy: Code(s): Z79.01 - alf (current) use of anticoagulants Category: Medical
== END 2025-01-02 15:12 | disposition home or self-care (01) ==
LOC: HO.ACS 14:22
PROVIDERS: PCP Internal Medicine; Visit Provider Internal Medicine Medical Oncology
DX: Z79.01 Long term (current) use of anticoagulants (principal)

== ENCOUNTER → 2025-01-02 14:22 | Outpatient (BNVA) | payer MEDICARE, OTHER, SELFPAY | PROVIDERS: PCP Internal Medicine; Visit Provider Internal Medicine Medical Oncology | DX: Z51.81 Encounter for therapeutic drug level monitoring (principal); Z79.01 Long term (current) use of anticoagulants | CPT/HCPCS: 85610; 99212 ==